=== PATIENT | female | born 1980 | race African-American/Black ===

== ENCOUNTER 2019-04-01 13:19 | Emergency (ER) | payer MEDICAID ==
[~2019-04-01] VITALS: Ht 165.1 cm; Wt 94.3 kg
--- NOTE | 2019-04-01 13:40 | NUR ---
ED Nurse Note:urine sent to labs
[2019-04-01 13:45] VITALS: BP 115/78
[2019-04-01] MEDS ORDERED: Meclizine 25mg tab ORAL ONE (13:45)
--- NOTE | 2019-04-01 13:45 | Emergency Room Report ---
History of Present Illness General Chief Complaint: Female Urogenital Problems Source: Patient Present Illness HPI Patient presents with complaints of significant dizziness consistent with her vertigo patient reports that she gets vertigo frequently last flareup was about 6 months ago this morning upon awaking She again had similar dizziness Patient also this morning had sensation of burning with urination Urinary more frequently Denies any chest pain or shortness of breath denies any vomiting denies any focal weakness Allergies: Coded Allergies: No Known Allergies (Unverified , 04/01/19) Patient History Past Medical History: see triage record Pertinent Family History: none Last Menstrual Period: 02/18/19 Reviewed Nursing Documentation: PMH: Agreed; PSxH: Agreed Nursing Documentation-PMH Past Medical History: No Stated History Review of Systems All Other Systems: negative except mentioned in HPI Physical Exam Vital Signs Date Time Temp Pulse Resp B/P (MAP) Pulse Ox O2 Delivery O2 Flow Rate FiO2 04/01/19 13:23 98.1 90 17 115/78 (90) 99 Room Air Sp02 EP Interpretation: reviewed, normal General Appearance: well appearing, no apparent distress Head: normocephalic, atraumatic Eyes: bilateral eye PERRL, bilateral eye EOMI ENT: hearing grossly normal, normal pharynx, TMs + canals normal, uvula midline Neck: full range of motion, supple, no meningismus, no bony tend Respiratory: lungs clear, normal breath sounds, no rhonchi, no respiratory distress, no retraction, no accessory muscle use Cardiovascular #1: normal peripheral pulses, regular rate, rhythm, no edema, no gallop, no JVD, no murmur Gastrointestinal: normal bowel sounds, non tender, soft, no mass, no organomegaly, non-distended, no guarding, no hernia, no pulsatile mass, no rebound Genitourinary: no CVA tenderness Musculoskeletal: normal inspection Neurologic: oriented x3, responsive, supervisor telephone answering service III-XII nml as tested, motor strength/ tone normal, sensory intact Psychiatric: mood/affect normal Skin: normal color, no rash, warm/dry, palpation normal Lymphatic: normal inspection, no adenopathy Medical Decision Making Diagnostic Impression: Primary Impression: Dysuria Additional Impression: Dizziness ER Course Multiple differentials in consideration Including but not limited to neurological, neurosurgical, infectious pathology entertained Patient's neurological exam is fairly benign No focal deficits patient's findings are consistent with her previous vertigo I did not feel patient met criteria for acute imaging or further work-up she is hemodynamically stable given the urine complaints exam was performed and shows negative findings patient was discussed regarding her diagnosis and will have close follow-up Labs Test 04/01/19 13:30 Urine Color Pale yellow Urine Appearance Clear Urine pH 8 (4.5-8.0) Urine Specific [place] 1.015 (1.005-1.035) Urine Protein Negative (NEGATIVE) Urine Glucose (UA) Negative (NEGATIVE) Urine Ketones Negative (NEGATIVE) Urine Blood Negative (NEGATIVE) Urine Nitrite Negative (NEGATIVE) Urine Bilirubin Negative (NEGATIVE) Urine Urobilinogen 1 MG/DL (0.0-1.0) Urine Leukocyte Esterase 1+ (NEGATIVE) Urine RBC 0-2 /HPF (0 - 2) Urine WBC 2-4 /HPF (0 - 2) Urine Squamous Epithelial Cells Few /LPF (NONE/OCC) Urine Bacteria Few /HPF (NONE) Urine HCG, Qualitative Negative (NEGATIVE) Last Vital Signs Date Time Temp Pulse Resp B/P (MAP) Pulse Ox O2 Delivery O2 Flow Rate FiO2 04/01/19 13:23 98.1 90 17 115/78 (90) 99 Room Air Status: improved Disposition: HOME, SELF-CARE Condition: Improved Scripts Meclizine Hcl* (MECLIZINE*) 25 Mg Tablet 25 MG ORAL THREE TIMES A DAY for 7 Days, #21 TAB Prov: Eli Stafford DO 04/01/19 Meclizine Hcl* (MECLIZINE*) 25 Mg Tablet 25 MG ORAL THREE TIMES A DAY, #12 TAB Prov: Eli Stafford DO 04/01/19 Additional Instructions: Patient is provided with the discharge instructions notified to follow up with primary doctor in the next 2-3 days otherwise return to the er with any worsening symptoms. Please note that this report is being documented using [employer] technology. This can lead to erroneous entry secondary to incorrect interpretation by the dictating instrument. Eli Stafford DO Apr 01, 2019 13:45
[2019-04-01 13:47] LABS: APPEARANCE,URINE CLEAR; BILIRUBIN, URINE NEGATIVE (NEGATIVE); COLOR,URINE PALE YELLOW; GLUCOSE, URINE (UA) NEGATIVE (NEGATIVE); KETONES,URINE NEGATIVE (NEGATIVE); LEUKOCYTE ESTERASE ,URINE 1+ (NEGATIVE); NITRITE,URINE NEGATIVE (NEGATIVE); PH,URINE 8 (4.5-8.0); PROTEIN,URINE NEGATIVE (NEGATIVE); UROBILINOGEN,URINE 1 MG/DL (0.0-1.0)
--- NOTE | 2019-04-01 13:59 | NUR ---
ED Nurse Note: pt from home walked in c/o dizziness nausea since this morning, also reported possible UTI symptoms ermd eval done urine hcg negative BS 107 pt medicated will monitor.
--- NOTE | 2019-04-01 14:33 | NUR ---
ED Nurse Note: pt provided with a 2nd blanket . Pt state he is feeling a little better. Will continue to monitor.
[2019-04-01] MEDS ORDERED: MECLIZINE HCL25 MG ORAL ×2 (15:19→15:49)
[2019-04-01 15:52] VITALS: BP 118/78
--- NOTE | 2019-04-01 15:54 | NUR ---
ED Nurse Note: Pt cleared by health care Provider for discharge. DC instructions/prescription was given and explained to pt and verbalized understanding of teachings. All medical deviecs such as ID band removed. Pt is AAO x4, ambulatory and left with all personal belongings.
== END 2019-04-01 15:55 | disposition home or self-care (01) ==
LOC: EMR 14:05
DX: R42 Dizziness and giddiness (principal); R30.0 Dysuria
CPT/HCPCS: 81003; 81025; 82962; 99283

== ENCOUNTER 2019-04-03 09:36 | Emergency (ER) | payer MEDICAID ==
[~2019-04-03] VITALS: Ht 162.6 cm; Wt 92.5 kg
[~2019-04-03 09:36] MED LIST: MECLIZINE HCL25 MG ORAL
--- NOTE | 2019-04-03 09:45 | NUR ---
ED Nurse Note: Patient walked into ED due to abdominal pain in the mid upper gastric area since yesterday around 2200. Patient reports she has been taking medication "antivert" for her vertigo. patient denies any medical history. patient reports her last BM was yesterday, bowel sounds present on all 4 quadrants. patient is alert awake x4 ambulatory, breathing unlabored and even, skin is warm to touch.
--- NOTE | 2019-04-03 09:54 | Emergency Room Report ---
History of Present Illness General Chief Complaint: Abdominal Pain Source: Patient Present Illness HPI Patient presents with complaints of epigastric abdominal discomfort She was recently here and I do recall seeing the patient for fairly severe episode of dizziness and vertigo Patient reports that that has improved however now experiencing burning sensation in the epigastric area Denies any chest pain or shortness of breath denies any vomiting or diarrhea denies any lower abdominal pain denies any radiation Allergies: Coded Allergies: No Known Allergies (Unverified , 04/01/19) Patient History Past Medical History: see triage record Pertinent Family History: none Last Menstrual Period: 03/06/19 Reviewed Nursing Documentation: PMH: Agreed; PSxH: Agreed Nursing Documentation-PMH Past Medical History: No Stated History Review of Systems All Other Systems: negative except mentioned in HPI Physical Exam Vital Signs Date Time Temp Pulse Resp B/P (MAP) Pulse Ox O2 Delivery O2 Flow Rate FiO2 04/03/19 09:40 98.2 89 18 130/66 (87) 98 Room Air Sp02 EP Interpretation: reviewed, normal General Appearance: well appearing, no apparent distress Head: normocephalic, atraumatic Eyes: bilateral eye PERRL, bilateral eye EOMI ENT: hearing grossly normal, normal pharynx, TMs + canals normal, uvula midline Neck: full range of motion, supple, no meningismus, no bony tend Respiratory: lungs clear, normal breath sounds, no rhonchi, no respiratory distress, no retraction, no accessory muscle use Cardiovascular #1: normal peripheral pulses, regular rate, rhythm, no edema, no gallop, no JVD, no murmur Gastrointestinal: normal bowel sounds, non tender - However subjectively points to epigastric area, soft, no mass, no organomegaly, non-distended, no guarding, no hernia, no pulsatile mass, no rebound Genitourinary: no CVA tenderness Musculoskeletal: normal inspection Neurologic: oriented x3, responsive, conveyor tender III-XII nml as tested, motor strength/ tone normal, sensory intact Psychiatric: mood/affect normal Lymphatic: normal inspection, no adenopathy Medical Decision Making Diagnostic Impression: Primary Impression: Abdominal pain ER Course With the patient's history and examination, multiple differentials considered, including but not limited to , ectopic , ovarian torsion, gastritis, cholecystitis, pancreatitis, appendicitis Patient's discomfort appears to be mainly epigastric possible gastric pathology as well Blood work is at baseline levels patient did better with GI cocktail and at this time will have initial conservative outpatient trial Labs Test 04/03/19 09:55 White Blood Count 7.0 K/UL (4.8-10.8) Red Blood Count 4.42 M/UL (4.20-5.40) Hemoglobin 12.6 G/DL (12.0-16.0) Hematocrit 39.6 % (37.0-47.0) Mean Corpuscular Volume 90 FL (80-99) Mean Corpuscular Hemoglobin 28.5 PG (27.0-31.0) Mean Corpuscular Hemoglobin Concent 31.8 G/DL (32.0-36.0) Red Cell Distribution Width 12.9 % (11.6-14.8) Platelet Count 269 K/UL (150-450) Mean Platelet Volume 5.8 FL (6.5-10.1) Neutrophils (%) (Auto) 60.5 % (45.0-75.0) Lymphocytes (%) (Auto) 29.2 % (20.0-45.0) Monocytes (%) (Auto) 8.7 % (1.0-10.0) Eosinophils (%) (Auto) 0.9 % (0.0-3.0) Basophils (%) (Auto) 0.7 % (0.0-2.0) Sodium Level 137 MMOL/L (136-145) Potassium Level 4.1 MMOL/L (3.5-5.1) Chloride Level 105 MMOL/L (98-107) Carbon Dioxide Level 26 MMOL/L (21-32) Anion Gap 6 mmol/L (5-15) Blood Urea Nitrogen 10 mg/dL (7-18) Creatinine 0.8 MG/DL (0.55-1.30) Estimat Glomerular Filtration Rate > 60 mL/min (>60) Glucose Level 116 MG/DL (74-106) Calcium Level 8.4 MG/DL (8.5-10.1) Total Bilirubin 0.3 MG/DL (0.2-1.0) Aspartate Amino Transf (AST/SGOT) 15 U/L (15-37) Alanine Aminotransferase (ALT/SGPT) 39 U/L (12-78) Alkaline Phosphatase 84 U/L (46-116) Total Protein 6.6 G/DL (6.4-8.2) Albumin 3.7 G/DL (3.4-5.0) Globulin 2.9 g/dL Albumin/Globulin Ratio 1.3 (1.0-2.7) Lipase 123 U/L (73-393) Last Vital Signs Date Time Temp Pulse Resp B/P (MAP) Pulse Ox O2 Delivery O2 Flow Rate FiO2 04/03/19 09:40 98.2 89 18 130/66 (87) 98 Room Air Status: improved Disposition: HOME, SELF-CARE Condition: Improved Scripts Famotidine (PEPCID AC) 20 Mg Tablet 20 MG PO DAILY, #10 TAB Prov: Eli Stafford DO 04/03/19 Referrals: [facility],REFERRING (PCP) Additional Instructions: Patient is provided with the discharge instructions notified to follow up with primary doctor in the next 2-3 days otherwise return to the er with any worsening symptoms. Please note that this report is being documented using [employer] technology. This can lead to erroneous entry secondary to incorrect interpretation by the dictating instrument. Eli Stafford DO Apr 03, 2019 09:54
[2019-04-03] MEDS ORDERED: Dicyclomine HCl 10mg/5ml oral soln ORAL ONE (10:00)
[2019-04-03] MEDS ORDERED: Mylanta II UD 30ml ORAL ONE (10:00)
[2019-04-03 10:10] VITALS: BP 128/62
--- NOTE | 2019-04-03 10:10 | NUR ---
ED Nurse Note: blood sent to lab
[2019-04-03 10:14] LABS: BASOPHILS % (AUTO) 0.7 % (0.0-2.0); EOSINOPHILS % (AUTO) 0.9 % (0.0-3.0); HEMATOCRIT 39.6 % (37.0-47.0); HEMOGLOBIN 12.6 G/DL (12.0-16.0); LYMPHOCYTES % (AUTO) 29.2 % (20.0-45.0); MEAN CORPUSCULAR VOLUME 90 FL (80-99); MONOCYTES % (AUTO) 8.7 % (1.0-10.0); NEUTROPHILS % (AUTO) 60.5 % (45.0-75.0); PLATELET COUNT 269 K/UL (150-450); RED BLOOD COUNT 4.42 M/UL (4.20-5.40); RED CELL DISTRIBUTION WIDTH 12.9 % (11.6-14.8)
[2019-04-03 10:27] LABS: ANION GAP 6 mmol/L (5-15); BLOOD UREA NITROGEN 10 mg/dL (7-18); CALCIUM 8.4 MG/DL (8.5-10.1); CARBON DIOXIDE 26 MMOL/L (21-32); CHLORIDE 105 MMOL/L (98-107); CREATININE 0.8 MG/DL (0.55-1.30); POTASSIUM 4.1 MMOL/L (3.5-5.1); SODIUM 137 MMOL/L (136-145)
[2019-04-03 10:31] LABS: ALANINE AMINOTRANSFERASE 39 U/L (12-78); ALBUMIN 3.7 G/DL (3.4-5.0); ALBUMIN/GLOBULIN RATIO 1.3 (1.0-2.7); ALKALINE PHOSPHATASE 84 U/L (46-116); ASPARTATE AMINO TRANSFERASE 15 U/L (15-37); BILIRUBIN,TOTAL 0.3 MG/DL (0.2-1.0)
[2019-04-03] MEDS ORDERED: PEPCID AC20 M2 PO (11:11)
[2019-04-03 11:17] VITALS: BP 128/62
--- NOTE | 2019-04-03 11:17 | NUR ---
ER DISCHARGE NOTE: Patient is cleared to be discharged per TOYIN Stafford, pt is aox4, on room air, with stable vital signs. pt was given dc and prescription instructions, pt was able to verbalize understanding, pt id band and iv site removed without complications. pt is able to ambulate with steady gait. pt took all belongings.
== END 2019-04-03 11:17 | disposition home or self-care (01) ==
LOC: EMR 09:51
DX: R10.13 Epigastric pain (principal); R42 Dizziness and giddiness
CPT/HCPCS: 36415; 80053; 83690; 85025; 99284

== ENCOUNTER 2019-07-14 16:19 | Emergency (ER) | payer MEDICAID ==
[~2019-07-14] VITALS: Ht 160 cm; Wt 96.2 kg
[~2019-07-14 16:19] MED LIST changes: +PEPCID AC20 M2 PO
[2019-07-14 16:30] VITALS: BP 125/75
[2019-07-14] MEDS ORDERED: NKM (16:33)
[2019-07-14] MEDS ORDERED: IBUPROFEN600 MG ORAL (17:01)
--- NOTE | 2019-07-14 17:01 | Emergency Room Report ---
History of Present Illness General Chief Complaint: Pain Source: Patient Present Illness HPI 39 YO Female presents to the ED c/o 8 out of 10 in severity pain localized to the left heel and plantar aspect of the left foot x3 weeks been progressive patient reports standing and walking frequently at work. Patient reports pain upon palpation yet she also states that it feels better for several seconds. Pt. states she has been primarily walking on the lateral aspect of her left foot or on the ball of the foot. Patient denies trauma or fall. No erythema, bruising, open wounds or bleeding. Pt. has not tried any OTC medications. No suspicion of FB. Pt. has not experienced sx's like this in the past. Denies significant PMHx. Allergies: Coded Allergies: No Known Allergies (Unverified , 04/01/19) Patient History Past Medical History: see triage record Past Surgical History: none Pertinent Family History: none Last Menstrual Period: 06/17/19 Now: No Reviewed Nursing Documentation: PMH: Agreed; PSxH: Agreed Nursing Documentation-PMH Past Medical History: No Stated History Review of Systems All Other Systems: negative except mentioned in HPI Physical Exam Vital Signs Date Time Temp Pulse Resp B/P (MAP) Pulse Ox O2 Delivery O2 Flow Rate FiO2 07/14/19 16:25 98.2 88 17 123/73 (90) 99 Room Air Sp02 EP Interpretation: reviewed, normal General Appearance: well appearing, no apparent distress, alert, GCS 15, non- toxic Head: normocephalic, atraumatic Eyes: bilateral eye normal inspection, bilateral eye PERRL ENT: hearing grossly normal, normal voice Neck: full range of motion Respiratory: lungs clear, normal breath sounds, speaking full sentences Cardiovascular #1: regular rate, rhythm, normal capillary refill Cardiovascular #2: 2+ dorsalis pedis (R), 2+ dorsalis pedis (L) Musculoskeletal: back normal, gait/station normal, normal range of motion, non- tender, tender - TTP to the midline ST of the left foot some radiation up the heel, no localized bony ttp, no bruises or obvious deformity. Pt able to bear weight and ambulate without assistance. Neurologic: alert, oriented x3, responsive, motor strength/tone normal, sensory intact, speech normal, grossly normal Psychiatric: judgement/insight normal Skin: no rash, normal color, other - no open wounds, no warmth/erythema, no visualized old lesions, corns, callous, or plantar warts. Lymphatic: no adenopathy Medical Decision Making PA Attestation Dr. Kurtz Is my supervising Physician whom patient management has been discussed with. Diagnostic Impression: Primary Impression: Plantar fasciitis of left foot Additional Impression: Foot pain, left ER Course 39 YO Female presents to the ED c/o 8 out of 10 in severity pain localized to the left heel and plantar aspect of the left foot x3 weeks been progressive patient reports standing and walking frequently at work. Patient reports pain upon palpation yet she also states that it feels better for several seconds. Pt. states she has been primarily walking on the lateral aspect of her left foot or on the ball of the foot. Patient denies trauma or fall. No erythema, bruising, open wounds or bleeding. Pt. has not tried any OTC medications. No suspicion of FB. Pt. has not experienced sx's like this in the past. Denies significant PMHx. Ddx considered but are not limited to Fracture, dislocation, contusion, Sprain/ Strain/Spasm, plantar fasciitis, infection, ST FB just to name a few. Vital signs: are WNL, pt. is afebrile H&PE are most consistent with ST injury, most likely Plantar fasciitis. No evidence to suggest infection or acute fracture. ORDERS: - X-ray : Not required at this time no localized bony tenderness ED INTERVENTIONS: -IBU 600mg PO --Patient is provided with crutches and instructed on their use -I do not identify an emergent condition at this time. With current presentation , pt. is stable for close outpatient follow up and conservative treatment. D/ w pt. to return promptly to ED with worsening or new symptoms.- Pt. verbalizes' understanding and agreement with proposed treatment plan. DISCHARGE: At this time pt. is stable for d/c to home. Will provide printed patient care instructions, and any necessary prescriptions. Care plan and follow up instructions have been discussed with the patient prior to discharge. Last Vital Signs Date Time Temp Pulse Resp B/P (MAP) Pulse Ox O2 Delivery O2 Flow Rate FiO2 07/14/19 16:25 98.2 88 17 123/73 (90) 99 Room Air Disposition: HOME, SELF-CARE Condition: Stable Scripts Ibuprofen* (MOTRIN*) 600 Mg Tablet 600 MG ORAL THREE TIMES A DAY, #30 TAB 0 Refills Prov: Gege Szymanski 07/14/19 Departure Forms: Return to Work Return to Work Date: Jul 18, 2019 Work Restrictions: No Prolonged Standing Other Restrictions: limited walking, light duty. May return Sooner if Symptoms have resolved. Return to Full Activity: Jul 23, 2019 Patient Instructions: Plantar Fasciitis Additional Instructions: ~ ~ An emergent medical condition has not been identified based on this patients presentation, exam and any necessary testing/imaging. The patient is determined to be stable for outpatient follow-up and management of symptoms by a primary care provider. Take medications as directed. Follow up with a Primary Care Provider in 3-5 days, even if your symptoms have resolved. Return sooner to ED if new symptoms occur, or current symptoms become worse. - Please note that this Emergency Department Report was dictated using [employer] supervisor technology software, occasionally this can lead to erroneous entry secondary to interpretation by the dictation equipment. Gege Szymanski Jul 14, 2019 17:01
[2019-07-14 17:20] VITALS: BP 125/75
== END 2019-07-14 17:20 | disposition home or self-care (01) ==
LOC: EMR 16:52
DX: M72.2 Plantar fascial fibromatosis (principal)
CPT/HCPCS: 99282

== ENCOUNTER 2019-07-19 22:10 | Emergency (ER) | payer MEDICAID ==
[~2019-07-19] VITALS: Ht 160 cm; Wt 96.2 kg
[~2019-07-19 22:10] MED LIST changes: +IBUPROFEN600 MG ORAL; +NKM
--- NOTE | 2019-07-19 22:20 | NUR ---
ED Nurse Note: Patient complaning of pain to the left foot - states she been diagnosed with plantar fascitis but doesnt feel that she is improving.
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
--- NOTE | 2019-07-19 22:45 | NUR ---
ED Nurse Note: Radiographs obtained.
--- NOTE | 2019-07-19 22:50 | NUR ---
ED Nurse Note: Patient provided with crutches with advice per EMT
--- NOTE | 2019-07-19 22:51 | Emergency Room Report ---
History of Present Illness General Chief Complaint: Lower Extremity Injury Source: Patient Present Illness HPI 39-year-old female with no significant past medical history. She presents with chief complaint of left foot pain. Onset for over a week. Pain is to the bottom of the foot. She was seen here and diagnosed with plantar fasciitis. She said is getting worse. Worse with movement and walking. Pain is sharp in nature. [place] like tearing to the arch of the foot. No trauma. No fever chills. Pain is 8 out of 10. Patient has not take anything for it. Allergies: Coded Allergies: No Known Allergies (Unverified , 04/01/19) Patient History Past Medical History: see triage record, old chart reviewed Past Surgical History: none Pertinent Family History: none Social History: Denies: smoking Last Menstrual Period: 07/17/19 Now: No : 5 Para: 4 Immunizations: other Reviewed Nursing Documentation: PMH: Agreed; PSxH: Agreed Nursing Documentation-PMH Past Medical History: No Stated History Review of Systems Eye: Denies: eye pain, blurred vision ENT: Denies: ear pain, nose congestion, throat swelling Respiratory: Denies: cough, shortness of breath Cardiovascular: Denies: chest pain, palpitations Gastrointestinal: Denies: abdominal pain, diarrhea, nausea, vomiting Musculoskeletal: Reports: joint pain; Denies: back pain Skin: Denies: rash Neurological: Denies: headache, numbness Endocrine: Denies: increased thirst, increased urine Hematologic/Lymphatic: Denies: easy bruising All Other Systems: negative except mentioned in HPI Physical Exam Vital Signs Date Time Temp Pulse Resp B/P (MAP) Pulse Ox O2 Delivery O2 Flow Rate FiO2 07/19/19 22:20 98.2 93 17 118/61 (80) 97 Room Air Vitals normal Sp02 EP Interpretation: reviewed, normal General Appearance: well appearing, no apparent distress, alert Head: normocephalic, atraumatic Eyes: bilateral eye PERRL, bilateral eye EOMI ENT: hearing grossly normal, normal pharynx Neck: full range of motion, supple, no meningismus Respiratory: chest non-tender, lungs clear, normal breath sounds Cardiovascular #1: regular rate, rhythm, no murmur Gastrointestinal: normal bowel sounds, non tender, no mass, no organomegaly, no bruit, non-distended Musculoskeletal: back normal, normal range of motion, other - Left foot: She has tenderness along the plantar fascia especially next insertion to the heel. Psychiatric: mood/affect normal Procedures Splinting Splinting : Consent: Verbal Location: Foot left Pre-Made Type: orthopedic shoes Pre-Proc Neuro Vasc Exam: normal Post-Proc Neuro Vasc Exam: normal Patient Tolerated: Well Complications: None Medical Decision Making Diagnostic Impression: Primary Impression: Plantar fasciitis, left ER Course Patient presents with plantar fasciitis. No fracture dislocation. No gout. Will discharge home. Other X-Ray Diagnostic Results Other X-Ray Diagnostic Results : X-Ray ordered: Left foot # of Views/Limited Vs Complete: 3 View Indication: Pain EP Interpretation: Yes Interpretation: no dislocation, no soft tissue swelling, no fractures Impression: No acute disease Electronically Signed by: Tylor Garcia Last Vital Signs Date Time Temp Pulse Resp B/P (MAP) Pulse Ox O2 Delivery O2 Flow Rate FiO2 07/19/19 22:20 98.2 93 17 118/61 (80) 97 Room Air Status: improved Disposition: HOME, SELF-CARE Condition: Stable Scripts Prednisone* (PREDNISONE*) 20 Mg Tablet 40 MG ORAL DAILY, #10 TAB Prov: Kb Patton MD 07/19/19 Ibuprofen* (MOTRIN*) 600 Mg Tablet 600 MG ORAL THREE TIMES A DAY, #30 TAB 0 Refills Prov: Kb Patton MD 07/19/19 Referrals: [facility],REFERRING (PCP) Additional Instructions: Elevate foot. Follow-up with your doctor in 7 days. You may need a referral to see rib sawyer. Return if worse. Kb Patton MD Jul 19, 2019 22:51
[2019-07-19] MEDS ORDERED: IBUPROFEN600 MG ORAL (22:55)
[2019-07-19] MEDS ORDERED: PREDNISONE20 MG ORAL (22:55)
--- NOTE | 2019-07-19 23:02 | NUR ---
ER DISCHARGE NOTE: Patient is cleared to be discharged per ERMD, pt is aox4, on room air, with stable vital signs. pt was given dc and prescription instructions, pt was able to verbalize understanding, pt id band removed without complications. pt is able to ambulate with steady gait utilising crutches. pt took all belongings.
[2019-07-19 23:05] VITALS: BP 118/61
--- NOTE | 2019-07-20 10:52 | Diagnostic Imaging Report ---
Indication: Left foot pain Technique: 3 views left foot Comparison: none Findings: No acute fractures. No dislocations. The joint spaces are preserved there is a ring around the second toe which could obscure pathology. There is a small bone island within the calcaneus Impression: No acute process
== END 2019-07-19 23:02 | disposition home or self-care (01) ==
LOC: EMR 22:33
DX: M72.2 Plantar fascial fibromatosis (principal)
CPT/HCPCS: 73630; Z7502; 99283

== ENCOUNTER 2019-08-18 09:16 | Emergency (ER) | payer SELFPAY ==
[~2019-08-18] VITALS: Ht 160 cm; Wt 92.5 kg
[~2019-08-18 09:16] MED LIST changes: +PREDNISONE20 MG ORAL
[2019-08-18 09:30] VITALS: BP 116/66
--- NOTE | 2019-08-18 09:30 | NUR ---
ED Nurse Note: Patient walked in due to left foot pain x1 week ago. Pt was seen here twice for a month due to same symptom. As per pt, it is a work related injury. Skin is intact. No SOB. Afebrile. VSS.
--- NOTE | 2019-08-18 10:15 | NUR ---
ED Nurse Note: ERMD at bedside.
[2019-08-18] MEDS ORDERED: IBUPROFEN600 MG ORAL (10:20)
[2019-08-18] MEDS ORDERED: ACETAMINOPHEN325 M1 ORAL (10:20)
--- NOTE | 2019-08-18 10:22 | Emergency Room Report ---
History of Present Illness General Chief Complaint: Pain Source: Patient Present Illness HPI Disclaimer: Please note that this report is being documented using [employer] technology. This can lead to erroneous entry secondary to incorrect interpretation by the dictating instrument. HPI: 39-year-old female with a history of plantar fasciitis presents for evaluation of left foot pain. Symptoms have been present for several months. She has had multiple emergency department visits for pain in the left foot. Given a orthopedic shoe and NSAIDs in the past. She states that she was seen at her PMDs office yesterday who cleared her to return to work but she is here because she cannot work or stand on her feet. No new injury. Denies swelling, redness, throbbing sensation. Worse with activity. Minor relieved by rest. Pain is constant over the heel and does not radiate. PMH: Plantar fasciitis PSH: Denies Allergies: Denies Social Hx: Denies drug or alcohol abuse Allergies: Coded Allergies: No Known Allergies (Unverified , 04/01/19) Patient History Last Menstrual Period: 07/2019 Now: No Nursing Documentation-PMH Past Medical History: No Stated History Review of Systems All Other Systems: negative except mentioned in HPI Physical Exam Vital Signs Date Time Temp Pulse Resp B/P (MAP) Pulse Ox O2 Delivery O2 Flow Rate FiO2 08/18/19 09:25 98.2 91 20 116/66 (83) 98 Room Air General: Awake and alert, no acute distress HEENT: NC/AT. EOMI. Resp: Normal work of breathing Skin: Intact. No abrasions, laceration or rash over the exposed skin MSK: There is tenderness over the calcaneus and midfoot over the plantar surface of the left foot without deformity in the ankle, toes. No evidence of gout. Full range of motion at the ankle. No tenderness over the medial or lateral malleolus. No tenderness over the midfoot bones. Neuro: Awake and alert. Mentating appropriately Medical Decision Making Diagnostic Impression: Primary Impression: Foot pain ER Course 39-year-old female presents for evaluation of chronic left heel pain. Symptoms again are consistent with plantar fasciitis. She has been intermittently compliant with the orthopedic boot provided but is no longer using NSAIDs as she states she ran out. She would like to return to work on a limited basis and requesting a note for that. We will provide this note and refill her NSAIDs. Do not see need for emergent imaging at this time as there is no new injury. She can follow-up with her PMD as an outpatient. Last Vital Signs Date Time Temp Pulse Resp B/P (MAP) Pulse Ox O2 Delivery O2 Flow Rate FiO2 08/18/19 09:30 98.2 91 20 116/66 98 Room Air Disposition: HOME, SELF-CARE Condition: Stable Scripts Acetaminophen* (ACETAMINOPHEN 325MG TABLET*) 325 Mg Tablet 650 MG ORAL Q4H PRN for For Pain for 5 Days, #30 TAB Prov: Corey Galo MD 08/18/19 Ibuprofen* (MOTRIN*) 600 Mg Tablet 600 MG ORAL Q8H PRN for For Pain, #30 TAB 0 Refills Prov: Corey Galo MD 08/18/19 Referrals: Barbara [facility] Open 24 hour /7 days a week by Appointment Only [address] [facility] [address] [address] Patient Instructions: Plantar Fasciitis Additional Instructions: We have refilled your medications for Tylenol, Motrin to use for your foot pain. Continue wearing the orthopedic boot provided at your last emergency department visit. Follow-up with your doctor to discuss continued foot pain. Return to the emergency department new or worsening symptoms. Corey Galo MD Aug 18, 2019 10:22
[2019-08-18 10:34] VITALS: BP 116/66
--- NOTE | 2019-08-18 10:34 | NUR ---
ED Nurse Note: Pt cleared by ERMD for discharge. DC instructions was given and explained to pt and verbalized understanding of teachings. Prescription was sent electronically to the pharmacy of choice. All medical deviecs such as ID band removed. Pt is AAO x4, ambulatory and left with all personal belongings.
== END 2019-08-18 10:34 | disposition home or self-care (01) ==
LOC: EMR 09:45
DX: M25.572 Pain in left ankle and joints of left foot (principal); G89.29 Other chronic pain
CPT/HCPCS: 99282

== ENCOUNTER 2019-08-23 16:47 | Emergency (ER) | payer MEDICAID ==
[~2019-08-23] VITALS: Ht 160 cm; Wt 92.5 kg
[~2019-08-23 16:47] MED LIST changes: +ACETAMINOPHEN325 M1 ORAL
[2019-08-23 17:01] VITALS: BP 114/72
--- NOTE | 2019-08-23 17:03 | NUR ---
ED Nurse Note: Patient walked in to ER from home due to Lt wrist pain 05/15. per pt, she fell and landed on Lt wrist last night and pain did not get better. no bruise or visible wound noted but edema on Lt wrist present. Patient alert and oriented x4 and ambulatory. Calm and cooperative. Skin clean and intact. No cardiac or acute distress noted at this time.
--- NOTE | 2019-08-23 17:13 | NUR ---
ED Nurse Note: x-ray at bedside.
[2019-08-23] MEDS ORDERED: HYDROcodone/Acetamin 5/325 tab ORAL ONE (17:15)
--- NOTE | 2019-08-23 17:54 | NUR ---
ED Nurse Note: splint applied at bedside.
--- NOTE | 2019-08-23 17:55 | Emergency Room Report ---
History of Present Illness General Chief Complaint: Upper Extremity Injury Source: Patient Present Illness HPI 39 YO female presents to the ED C/O 05/15 in severity pain, tenderness and swelling to the lateral aspect of the left wrist. Pt. S/p mechanical fall. Pt. states her wrist "bent inward" when she landed. She denies FOOSH. Denies hitting her head or having midline neck or back pain. Pt. reports pain with twisting the wrist and palpation of the lateral aspect of the left wrist. Denies numbness tingling or loss of sensation or gross motor movements of the extremities, incontinence of bowel or bladder. Denies CP, Palpitations, LOC, AMS , dizziness, Changes in Vision, weakness or a sudden severe headache. Allergies: Coded Allergies: No Known Allergies (Unverified , 04/01/19) Patient History Past Medical History: see triage record Past Surgical History: none Pertinent Family History: none Last Menstrual Period: 07/27/19 Now: No Reviewed Nursing Documentation: PMH: Agreed; PSxH: Agreed Nursing Documentation-PMH Past Medical History: No Stated History Review of Systems All Other Systems: negative except mentioned in HPI Physical Exam Vital Signs Date Time Temp Pulse Resp B/P (MAP) Pulse Ox O2 Delivery O2 Flow Rate FiO2 08/23/19 16:52 98.4 101 15 114/72 (86) 96 Room Air Sp02 EP Interpretation: reviewed, normal General Appearance: no apparent distress, alert, GCS 15, non-toxic Head: normocephalic, atraumatic Eyes: bilateral eye normal inspection, bilateral eye PERRL ENT: hearing grossly normal, normal voice Neck: full range of motion Respiratory: chest non-tender, lungs clear, normal breath sounds, speaking full sentences Cardiovascular #1: regular rate, rhythm, normal capillary refill Cardiovascular #2: 2+ radial (R), 2+ radial (L) Musculoskeletal: back normal, gait/station normal, normal range of motion, tender - lateral aspect of the left wrist. no bruises, no obvious deformity. FROM with pain. No snuff box tenderness. Neurologic: alert, oriented x3, responsive, motor strength/tone normal, sensory intact, speech normal, distal neuro normal, grossly normal Psychiatric: judgement/insight normal Skin: normal color, normal inspection Medical Decision Making PA Attestation Dr. Stafford is my supervising Physician whom patient management has been discussed with. Diagnostic Impression: Primary Impression: Left wrist sprain Qualified Codes: S63.502A - Unspecified sprain of left wrist, initial encounter ER Course 39 YO female presents to the ED C/O 05/15 in severity pain, tenderness and swelling to the lateral aspect of the left wrist. Pt. S/p mechanical fall. Pt. states her wrist "bent inward" when she landed. She denies FOOSH. Denies hitting her head or having midline neck or back pain. Pt. reports pain with twisting the wrist and palpation of the lateral aspect of the left wrist. Denies numbness tingling or loss of sensation or gross motor movements of the extremities, incontinence of bowel or bladder. Denies CP, Palpitations, LOC, AMS , dizziness, Changes in Vision, weakness or a sudden severe headache. Denies numbness tingling or loss of sensation or gross motor movements of the extremities, incontinence of bowel or bladder. Denies CP, Palpitations, LOC, AMS , dizziness, Changes in Vision, weakness or a sudden severe headache. Ddx considered but are not limited to Fracture, dislocation, contusion, Sprain/ Strain/Spasm, scaphoid fx just to name a few. Vital signs: are WNL, pt. is afebrile H&PE are most consistent with musculoskeletal injury will perform imaging to r/ o fractures/dislocations. ORDERS: - X-ray Left wrist 3 views - negative for fx, Dislocation, or significant soft tissue injury, per preliminary read in ED, and signed by SARAH Szymanski , my supervising physician has reviewed, and agrees with my interpretation. ED INTERVENTIONS: - Darby PO - Left Colles wrist splint applied by roadway technician. Pt. remains neurovascularly intact. DISCHARGE: At this time pt. is stable for d/c to home. Will provide printed patient care instructions, and any necessary prescriptions. Care plan and follow up instructions have been discussed with the patient prior to discharge. Other X-Ray Diagnostic Results Other X-Ray Diagnostic Results : X-Ray ordered: Left Wrist # of Views/Limited Vs Complete: 3 View Indication: Pain EP Interpretation: Yes SARAH Xray: Interpretation reviewed, by supervising MD, and agrees with findings. Interpretation: no dislocation, no soft tissue swelling, no fractures Impression: No acute disease Electronically Signed by: Gege Szymanski PA-C Last Vital Signs Date Time Temp Pulse Resp B/P (MAP) Pulse Ox O2 Delivery O2 Flow Rate FiO2 08/23/19 17:01 98.4 15 114/72 96 Room Air 08/23/19 16:52 101 Status: improved Disposition: HOME, SELF-CARE Condition: Stable Scripts Naproxen* (NAPROXEN*) 500 Mg Tablet 500 MG ORAL BID, #14 TAB 0 Refills Prov: Gege Szymanski 08/23/19 Departure Forms: Return to Work Return to Work Date: Aug 24, 2019 Work Restrictions: No Heavy Lifting Other Restrictions: wear splint, limited use of left hand. May return Sooner if improved. Return to Full Activity: Aug 31, 2019 Patient Instructions: Wrist Sprain Additional Instructions: Take medications as directed. Follow up with a Primary Care Provider in 3-5 days, even if your symptoms have resolved. Return sooner to ED if new symptoms occur, or current symptoms become worse. - Please note that this Emergency Department Report was dictated using saperatecregistered occupational therapist technology software, occasionally this can lead to erroneous entry secondary to interpretation by the dictation equipment. Gege Szymanski Aug 23, 2019 17:55
[2019-08-23] MEDS ORDERED: NAPROXEN500 M2 ORAL (17:56)
[2019-08-23 18:04] VITALS: BP 116/72
--- NOTE | 2019-08-23 18:05 | NUR ---
ED Nurse Note: Pt cleared by health care Provider for discharge after splint applied on Lt wrist. DC instructions/prescription was given and explained to pt and verbalized understanding of teachings. All medical deviecs such as ID band removed. Pt is AAO x4, ambulatory and left with all personal belongings.
--- NOTE | 2019-08-24 11:48 | Diagnostic Imaging Report ---
Clinical Indication:Left wrist pain Technique: 3 views of the left wrist Comparison: None Findings: No acute fractures. No dislocations. The joint spaces are preserved Impression: Negative
== END 2019-08-23 18:05 | disposition home or self-care (01) ==
LOC: EMR 17:05
DX: S63.502A Unspecified sprain of left wrist, initial encounter (principal); W19.XXXA Unspecified fall, initial encounter; Y92.9 Unspecified place or not applicable
CPT/HCPCS: 29125; 73110; Z7502; 99283

== ENCOUNTER 2019-09-14 20:46 | Emergency (ER) | payer MEDICAID ==
[~2019-09-14] VITALS: Ht 160 cm; Wt 92.5 kg
[~2019-09-14 20:46] MED LIST changes: +NAPROXEN500 M2 ORAL
[2019-09-14 21:02] VITALS: BP 116/73
--- NOTE | 2019-09-14 21:02 | NUR ---
ED Nurse Note: Patient walked in to ER c/o abdominal pain and diarrhea x 1 day. Reports pain as constant and aching. Stated that she feels shaky. Denies any fever or chills. No nausea and vomiting. Afebrile. No SOB. Breathing even and unlabored. VSS.
[2019-09-14] MEDS ORDERED: Morphine Sulfate 2mg/ml Inj(IV/IM USE ONLY) IVP ONE (21:30)
--- NOTE | 2019-09-14 21:40 | NUR ---
ED Nurse Note: IV line established. Blood and urine specimen collected and sent to lab.
[2019-09-14 21:54] LABS: APPEARANCE,URINE CLEAR; BILIRUBIN, URINE NEGATIVE (NEGATIVE); COLOR,URINE PALE YELLOW; GLUCOSE, URINE (UA) NEGATIVE (NEGATIVE); KETONES,URINE NEGATIVE (NEGATIVE); LEUKOCYTE ESTERASE ,URINE NEGATIVE (NEGATIVE); NITRITE,URINE NEGATIVE (NEGATIVE); PH,URINE 6 (4.5-8.0); PROTEIN,URINE NEGATIVE (NEGATIVE); UROBILINOGEN,URINE NORMAL MG/DL (0.0-1.0)
[2019-09-14 21:58] LABS: BASOPHILS % (AUTO) 1.1 % (0.0-2.0); EOSINOPHILS % (AUTO) 1.3 % (0.0-3.0); HEMATOCRIT 38.4 % (37.0-47.0); HEMOGLOBIN 12.9 G/DL (12.0-16.0); LYMPHOCYTES % (AUTO) 38.3 % (20.0-45.0); MEAN CORPUSCULAR VOLUME 84 FL (80-99); MONOCYTES % (AUTO) 9.2 % (1.0-10.0); NEUTROPHILS % (AUTO) 50.1 % (45.0-75.0); PLATELET COUNT 227 K/UL (150-450); RED CELL DISTRIBUTION WIDTH 10.9 % (11.6-14.8); WHITE BLOOD COUNT 7.1 K/UL (4.8-10.8)
[2019-09-14 22:05] LABS: ANION GAP 8 mmol/L (5-15); BLOOD UREA NITROGEN 9 mg/dL (7-18); CALCIUM 8.9 MG/DL (8.5-10.1); CARBON DIOXIDE 27 MMOL/L (21-32); CHLORIDE 106 MMOL/L (98-107); CREATININE 0.8 MG/DL (0.55-1.30); POTASSIUM 3.7 MMOL/L (3.5-5.1); SODIUM 140 MMOL/L (136-145)
[2019-09-14 22:09] LABS: ALANINE AMINOTRANSFERASE 43 U/L (12-78); ALBUMIN 3.4 G/DL (3.4-5.0); ALKALINE PHOSPHATASE 94 U/L (46-116); ASPARTATE AMINO TRANSFERASE 13 U/L (15-37); BILIRUBIN,TOTAL 0.1 MG/DL (0.2-1.0)
[2019-09-14] MEDS ORDERED: RANITIDINE HCL150 MG ORAL (22:36)
[2019-09-14] MEDS ORDERED: ONDANSETRON ODT4 MG BC (22:36)
[2019-09-14 23:00] VITALS: BP 109/68
--- NOTE | 2019-09-14 23:00 | NUR ---
ED Nurse Note: Pt cleared by ERMD for discharge. DC instructions/prescription was given and explained to pt and verbalized understanding of teachings. All medical deviecs such as ID band and IV line removed. Pt is AAO x4, ambulatory and left with all personal belongings.
--- NOTE | 2019-09-15 04:22 | Emergency Room Report ---
History of Present Illness General Chief Complaint: Abdominal Pain Source: Patient Present Illness HPI 39-year-old female presents ED for evaluation. Brought in by EMS complaining of abdominal pain with nausea and vomiting. And diarrhea. Started today. Pain is cramping, 7 out of 10, nonradiating. Denies fevers or chills. Denies sick contacts or recent travel. Denies recent antibiotic use. No other aggravating relieving factors. Denies any other associated symptoms Allergies: Coded Allergies: No Known Allergies (Unverified , 04/01/19) Patient History Past Medical History: none Past Surgical History: none Pertinent Family History: none Social History: Denies: smoking, alcohol use, drug use Last Menstrual Period: 09/05/19 Now: No : 5 Para: 4 Immunizations: UTD Reviewed Nursing Documentation: PMH: Agreed; PSxH: Agreed Nursing Documentation-PMH Past Medical History: No Stated History Review of Systems All Other Systems: negative except mentioned in HPI Physical Exam Vital Signs Date Time Temp Pulse Resp B/P (MAP) Pulse Ox O2 Delivery O2 Flow Rate FiO2 09/14/19 20:55 98.1 91 16 116/73 (87) 96 Room Air Sp02 EP Interpretation: reviewed, normal General Appearance: no apparent distress, alert, GCS 15, non-toxic Head: normocephalic, atraumatic Eyes: bilateral eye normal inspection, bilateral eye PERRL ENT: hearing grossly normal, normal pharynx, no angioedema, normal voice Neck: full range of motion, supple/symm/no masses Respiratory: chest non-tender, lungs clear, normal breath sounds, speaking full sentences Cardiovascular #1: regular rate, rhythm, no edema Cardiovascular #2: 2+ carotid (R), 2+ carotid (L), 2+ radial (R), 2+ radial (L) , 2+ dorsalis pedis (R), 2+ dorsalis pedis (L) Gastrointestinal: normal bowel sounds, soft, non-distended, no guarding, no rebound, tenderness Rectal: deferred Genitourinary: normal inspection, no CVA tenderness Musculoskeletal: back normal, normal range of motion, gait/station normal, non- tender Neurologic: alert, motor strength/tone normal, oriented x3, sensory intact, responsive, speech normal Psychiatric: judgement/insight normal, memory normal, mood/affect normal, no suicidal/homicidal ideation Reflexes: 3+ bicep (R), 3+ bicep (L), 3+ tricep (R), 3+ tricep (L), 3+ knee (R) , 3+ knee (L) Lymphatic: no adenopathy Medical Decision Making Diagnostic Impression: Primary Impression: Gastroenteritis ER Course Hospital Course 39-year-old F presents to ED with cramping abdominal pain with vomiting, diarrhea differential diagnosis: gastritis, SBO, cholecystits, gastroenteritis Clinical course Patient placed on stretcher. On equipment monitor phototypesetting. After initial history and physical I ordered labs, IV fluids, Zofran and pepcid Labs - no leukocytosis, electrolytes ok, LFTs normal, UA unremarkable On reassessment patient states she feels better. Consideration for gastroenteritis. Will discharge to home. Will provide referrals I feel this is a highly complex case requiring extensive working including EKG/ Rhythm strip, Xray/CT/US, Blood/urine lab work, repeat exams while in ED, and administration of strong opiates/narcotics for pain control, admission to hospital or close patient follow up. Diagnosis - gastroenteritis Stable and discharged to home with prescriptions for Zantac, zofran. Followup with PMD. Return to ED if symptoms recur or worsen Labs Test 09/14/19 21:37 White Blood Count 7.1 K/UL (4.8-10.8) Red Blood Count 4.60 M/UL (4.20-5.40) Hemoglobin 12.9 G/DL (12.0-16.0) Hematocrit 38.4 % (37.0-47.0) Mean Corpuscular Volume 84 FL (80-99) Mean Corpuscular Hemoglobin 28.1 PG (27.0-31.0) Mean Corpuscular Hemoglobin Concent 33.6 G/DL (32.0-36.0) Red Cell Distribution Width 10.9 % (11.6-14.8) Platelet Count 227 K/UL (150-450) Mean Platelet Volume 5.6 FL (6.5-10.1) Neutrophils (%) (Auto) 50.1 % (45.0-75.0) Lymphocytes (%) (Auto) 38.3 % (20.0-45.0) Monocytes (%) (Auto) 9.2 % (1.0-10.0) Eosinophils (%) (Auto) 1.3 % (0.0-3.0) Basophils (%) (Auto) 1.1 % (0.0-2.0) Urine Color Pale yellow Urine Appearance Clear Urine pH 6 (4.5-8.0) Urine Specific [place] 1.025 (1.005-1.035) Urine Protein Negative (NEGATIVE) Urine Glucose (UA) Negative (NEGATIVE) Urine Ketones Negative (NEGATIVE) Urine Blood Negative (NEGATIVE) Urine Nitrite Negative (NEGATIVE) Urine Bilirubin Negative (NEGATIVE) Urine Urobilinogen Normal MG/DL (0.0-1.0) Urine Leukocyte Esterase Negative (NEGATIVE) Urine HCG, Qualitative Negative (NEGATIVE) Sodium Level 140 MMOL/L (136-145) Potassium Level 3.7 MMOL/L (3.5-5.1) Chloride Level 106 MMOL/L (98-107) Carbon Dioxide Level 27 MMOL/L (21-32) Anion Gap 8 mmol/L (5-15) Blood Urea Nitrogen 9 mg/dL (7-18) Creatinine 0.8 MG/DL (0.55-1.30) Estimat Glomerular Filtration Rate > 60 mL/min (>60) Glucose Level 129 MG/DL (74-106) Calcium Level 8.9 MG/DL (8.5-10.1) Total Bilirubin 0.1 MG/DL (0.2-1.0) Aspartate Amino Transf (AST/SGOT) 13 U/L (15-37) Alanine Aminotransferase (ALT/SGPT) 43 U/L (12-78) Alkaline Phosphatase 94 U/L (46-116) Total Protein 6.9 G/DL (6.4-8.2) Albumin 3.4 G/DL (3.4-5.0) Globulin 3.5 g/dL Albumin/Globulin Ratio 1.0 (1.0-2.7) Lipase 220 U/L (73-393) Last Vital Signs Date Time Temp Pulse Resp B/P (MAP) Pulse Ox O2 Delivery O2 Flow Rate FiO2 09/14/19 23:00 97.5 88 19 109/68 97 Room Air Status: improved Disposition: HOME, SELF-CARE Condition: Stable Scripts Ondansetron Odt* (ZOFRAN ODT*) 4 Mg Tab.rapdis 4 MG BC EVERY 6 HOURS PRN for Nausea & Vomiting, #10 TAB 0 Refills Prov: Blane Guerrero MD 09/14/19 Ranitidine Hcl* (ZANTAC*) 150 Mg Tablet 150 MG ORAL TWICE A DAY, #30 TAB Prov: Blane Guerrero MD 09/14/19 Referrals: Barbara Jonas [facility] Patient Instructions: Viral Gastroenteritis, Adult, [id number] Blane Guerrero MD Sep 15, 2019 04:22
== END 2019-09-14 23:00 | disposition home or self-care (01) ==
LOC: EMR 21:40
DX: K52.9 Noninfective gastroenteritis and colitis, unspecified (principal)
CPT/HCPCS: 36415; 80053; 81003; 81025; 83690; 85025; 86710; 96361; 96374; 96375; J2270; J2405; J7030; S0028; Z7502; 99284

== ENCOUNTER 2019-09-25 21:51 | Emergency (ER) | payer MEDICAID ==
[~2019-09-25] VITALS: Ht 162.6 cm; Wt 92.5 kg
[~2019-09-25 21:51] MED LIST changes: +ONDANSETRON ODT4 MG BC; +RANITIDINE HCL150 MG ORAL
[2019-09-25] MEDS ORDERED: NKM (21:56)
[2019-09-25 22:12] VITALS: BP 124/74
[2019-09-25] MEDS ORDERED: Acetaminophen 500mg (ES) tab ORAL ONE (22:15)
--- NOTE | 2019-09-25 22:15 | NUR ---
ED Nurse Note: Patient walked into ED c/o pelvic pain for the past 2 days, denies increased urination and discharge. ao4. nad. vss. ambulates with steady gait. changed to gown; attached to monitor.
[2019-09-25 22:18] LABS: APPEARANCE,URINE CLEAR; BILIRUBIN, URINE NEGATIVE (NEGATIVE); GLUCOSE, URINE (UA) NEGATIVE (NEGATIVE); KETONES,URINE NEGATIVE (NEGATIVE); LEUKOCYTE ESTERASE ,URINE NEGATIVE (NEGATIVE); NITRITE,URINE NEGATIVE (NEGATIVE); PH,URINE 6 (4.5-8.0); PROTEIN,URINE NEGATIVE (NEGATIVE); UROBILINOGEN,URINE 4 MG/DL (0.0-1.0)
--- NOTE | 2019-09-25 22:20 | NUR ---
ED Nurse Note: iv access established. blood and urine collected; sent down to lab.
[2019-09-25 22:21] LABS: COLOR,URINE YELLOW
[2019-09-25 22:38] LABS: BASOPHILS % (AUTO) 0.8 % (0.0-2.0); EOSINOPHILS % (AUTO) 0.8 % (0.0-3.0); HEMATOCRIT 39.9 % (37.0-47.0); HEMOGLOBIN 13.1 G/DL (12.0-16.0); LYMPHOCYTES % (AUTO) 34.7 % (20.0-45.0); MEAN CORPUSCULAR VOLUME 85 FL (80-99); MONOCYTES % (AUTO) 9.6 % (1.0-10.0); NEUTROPHILS % (AUTO) 54.1 % (45.0-75.0); PLATELET COUNT 248 K/UL (150-450); RED CELL DISTRIBUTION WIDTH 12.3 % (11.6-14.8); WHITE BLOOD COUNT 8.6 K/UL (4.8-10.8)
--- NOTE | 2019-09-25 22:44 | NUR ---
ED Nurse Note: patient down to us with ustech. ambulates with steady gait.
[2019-09-25 22:55] LABS: ALANINE AMINOTRANSFERASE 41 U/L (12-78); ALBUMIN 3.7 G/DL (3.4-5.0); ALBUMIN/GLOBULIN RATIO 1.1 (1.0-2.7); ALKALINE PHOSPHATASE 86 U/L (46-116); ANION GAP 6 mmol/L (5-15); ASPARTATE AMINO TRANSFERASE 15 U/L (15-37); BILIRUBIN,TOTAL 0.2 MG/DL (0.2-1.0); BLOOD UREA NITROGEN 12 mg/dL (7-18); CARBON DIOXIDE 29 MMOL/L (21-32); CHLORIDE 104 MMOL/L (98-107); CREATININE 0.9 MG/DL (0.55-1.30); POTASSIUM 3.8 MMOL/L (3.5-5.1); SODIUM 139 MMOL/L (136-145)
--- NOTE | 2019-09-25 23:12 | Emergency Room Report ---
History of Present Illness General Chief Complaint: Pelvic Pain Source: Patient Present Illness HPI 39-year-old female presents ED for evaluation. Complaining of pelvic pain x2 days. Sharp, 7 out of 10, radiating to the back. Denies vaginal bleeding or discharge. Denies fevers or chills. Denies nausea or vomiting. No other aggravating relieving factors. Denies any other associated symptoms Allergies: Coded Allergies: No Known Allergies (Unverified , 04/01/19) Patient History Past Medical History: none Past Surgical History: none Pertinent Family History: none Social History: Denies: smoking, alcohol use, drug use Last Menstrual Period: 09/07/19 Now: No Immunizations: UTD Reviewed Nursing Documentation: PMH: Agreed; PSxH: Agreed Nursing Documentation-PMH Past Medical History: No Stated History Review of Systems All Other Systems: negative except mentioned in HPI Physical Exam Vital Signs Date Time Temp Pulse Resp B/P (MAP) Pulse Ox O2 Delivery O2 Flow Rate FiO2 09/25/19 21:52 98.2 86 18 124/74 (91) 98 Room Air Sp02 EP Interpretation: reviewed, normal General Appearance: no apparent distress, alert, GCS 15, non-toxic Head: normocephalic, atraumatic Eyes: bilateral eye normal inspection, bilateral eye PERRL ENT: hearing grossly normal, normal pharynx, no angioedema, normal voice Neck: full range of motion, supple/symm/no masses Respiratory: chest non-tender, lungs clear, normal breath sounds, speaking full sentences Cardiovascular #1: regular rate, rhythm, no edema Cardiovascular #2: 2+ carotid (R), 2+ carotid (L), 2+ radial (R), 2+ radial (L) , 2+ dorsalis pedis (R), 2+ dorsalis pedis (L) Gastrointestinal: normal bowel sounds, soft, non-distended, no guarding, no rebound, tenderness - suprapubic Rectal: deferred Genitourinary: normal inspection, no CVA tenderness Musculoskeletal: back normal, normal range of motion, gait/station normal, other - L foot Neurologic: alert, motor strength/tone normal, oriented x3, sensory intact, responsive, speech normal Psychiatric: judgement/insight normal, memory normal, mood/affect normal, no suicidal/homicidal ideation Reflexes: 3+ bicep (R), 3+ bicep (L), 3+ tricep (R), 3+ tricep (L), 3+ knee (R) , 3+ knee (L) Skin: no rash Lymphatic: no adenopathy Medical Decision Making Diagnostic Impression: Primary Impression: Foot pain Qualified Codes: M79.672 - Pain in left foot Additional Impressions: Ovarian cyst Qualified Codes: N83.201 - Unspecified ovarian cyst, right side Fibroids ER Course Hospital Course 39-year-old female presents to ED complaining of lower abdominal pain Differential diagnoses include: gastrits, gastroenterits, ectopic , ovarian torsion/cyst, UTI Clinical course Patient placed on stretcher in ED. After initial history and physical I ordered labs, IV fluids and pain meds and pelvic ultrasound. Labs-no leukocytosis, electrolytes okay, beta hCG negative, UA negative Pelvic ultrasound- fibroids, R ovarian hemorrhagic cyst, good flow to both ovaries I discussed findings with the patient. Safe for discharge with close outpatient follow-up. I provided copy of ultrasound report. States she will follow-up with her [employer]. Plantar fasciitis pain is improved after medication. Diagnosis - fibroids, ovarian cyst, foot pain Stable and discharged to home with RxMotrin. Followup with PMD/[employer]. Return to ED if symptoms recur or worsen Labs Test 09/25/19 02:20 09/25/19 22:15 Urine Color Yellow Urine Appearance Clear Urine pH 6 (4.5-8.0) Urine Specific [place] 1.020 (1.005-1.035) Urine Protein Negative (NEGATIVE) Urine Glucose (UA) Negative (NEGATIVE) Urine Ketones Negative (NEGATIVE) Urine Blood Negative (NEGATIVE) Urine Nitrite Negative (NEGATIVE) Urine Bilirubin Negative (NEGATIVE) Urine Urobilinogen 4 MG/DL (0.0-1.0) Urine Leukocyte Esterase Negative (NEGATIVE) Urine HCG, Qualitative Negative (NEGATIVE) White Blood Count 8.6 K/UL (4.8-10.8) Red Blood Count 4.70 M/UL (4.20-5.40) Hemoglobin 13.1 G/DL (12.0-16.0) Hematocrit 39.9 % (37.0-47.0) Mean Corpuscular Volume 85 FL (80-99) Mean Corpuscular Hemoglobin 27.9 PG (27.0-31.0) Mean Corpuscular Hemoglobin Concent 32.9 G/DL (32.0-36.0) Red Cell Distribution Width 12.3 % (11.6-14.8) Platelet Count 248 K/UL (150-450) Mean Platelet Volume 5.5 FL (6.5-10.1) Neutrophils (%) (Auto) 54.1 % (45.0-75.0) Lymphocytes (%) (Auto) 34.7 % (20.0-45.0) Monocytes (%) (Auto) 9.6 % (1.0-10.0) Eosinophils (%) (Auto) 0.8 % (0.0-3.0) Basophils (%) (Auto) 0.8 % (0.0-2.0) Sodium Level 139 MMOL/L (136-145) Potassium Level 3.8 MMOL/L (3.5-5.1) Chloride Level 104 MMOL/L (98-107) Carbon Dioxide Level 29 MMOL/L (21-32) Anion Gap 6 mmol/L (5-15) Blood Urea Nitrogen 12 mg/dL (7-18) Creatinine 0.9 MG/DL (0.55-1.30) Estimat Glomerular Filtration Rate > 60 mL/min (>60) Glucose Level 94 MG/DL (74-106) Calcium Level 9.0 MG/DL (8.5-10.1) Total Bilirubin 0.2 MG/DL (0.2-1.0) Aspartate Amino Transf (AST/SGOT) 15 U/L (15-37) Alanine Aminotransferase (ALT/SGPT) 41 U/L (12-78) Alkaline Phosphatase 86 U/L (46-116) Total Protein 7.2 G/DL (6.4-8.2) Albumin 3.7 G/DL (3.4-5.0) Globulin 3.5 g/dL Albumin/Globulin Ratio 1.1 (1.0-2.7) Lipase 161 U/L (73-393) CT/MRI/US Diagnostic Results CT/MRI/US Diagnostic Results : Imaging Test Ordered: Pelvic US Impression FINDINGS: Uterus/cervix: 9.4 cm. Normal endometrial stripe thickness 6 mm. 2 intramural fibroids measuring 2.5 and 1.7 cm.. Right ovary: 4.4 cm. 4 cm underlying septated cyst. No mass. Normal blood flow. Left ovary: 4.4 cm. No mass. Normal blood flow. Free fluid: No free fluid. Last Vital Signs Date Time Temp Pulse Resp B/P (MAP) Pulse Ox O2 Delivery O2 Flow Rate FiO2 09/25/19 22:12 98.2 89 18 124/74 98 Room Air Status: improved Disposition: HOME, SELF-CARE Condition: Stable Scripts Ibuprofen* (MOTRIN*) 600 Mg Tablet 600 MG ORAL Q8H PRN for For Pain, #30 TAB 0 Refills Prov: Blane Guerrero MD 09/25/19 Referrals: [facility],REFERRING (PCP) Blane Guerrero MD Sep 25, 2019 23:12
--- NOTE | 2019-09-25 23:30 | NUR ---
ED Nurse Note: pt back from us.
--- NOTE | 2019-09-25 23:30 | Diagnostic Imaging Report ---
EXAM: US Pelvis Transabdominal, Complete CLINICAL HISTORY: ABD PAIN TECHNIQUE: Real-time complete transabdominal pelvic ultrasound with image documentation. COMPARISON: No relevant prior studies available. FINDINGS: Uterus/cervix: 9.4 cm. Normal endometrial stripe thickness 6 mm. 2 intramural fibroids measuring 2.5 and 1.7 cm.. Right ovary: 4.4 cm. 4 cm underlying septated cyst. No mass. Normal blood flow. Left ovary: 4.4 cm. No mass. Normal blood flow. Free fluid: No free fluid. IMPRESSION: 1. Fibroid uterus. 2. Hemorrhagic cyst in the right ovary.
[2019-09-25] MEDS ORDERED: IBUPROFEN600 MG ORAL (23:56)
[2019-09-26] VITALS: BP 124/74
--- NOTE | 2019-09-26 | NUR ---
ER DISCHARGE NOTE: Patient is cleared to be discharged per ERMD, pt is aox4, on room air, with stable vital signs. pt was given dc and prescription instructions, pt was able to verbalize understanding, pt id band and iv site removed without complications. pt is able to ambulate with steady gait. pt took all belongings.
== END 2019-09-26 | disposition home or self-care (01) ==
LOC: EMR 22:10
DX: N83.201 Unspecified ovarian cyst, right side (principal); D25.1 Intramural leiomyoma of uterus; M79.672 Pain in left foot
CPT/HCPCS: 36415; 76830; 76856; 80053; 81003; 81025; 83690; 85025; Z7502; 99284

== ENCOUNTER 2019-11-23 19:08 | Emergency (ER) | payer MEDICAID ==
[~2019-11-23] VITALS: Ht 160 cm; Wt 98.9 kg
[2019-11-23 19:30] VITALS: BP 122/75
--- NOTE | 2019-11-23 19:30 | NUR ---
ED Nurse Note: Patient walked in from home d/t left side abdominal sharp pain 8/10, history of fibroids and ovarian cysts. Patient also stated light vaginal bleeding. Patient aao x 4 and ambulatory. Patient stable during assessment.
[2019-11-23] MEDS ORDERED: Ketorolac 30mg Inj IV ONE (19:45)
--- NOTE | 2019-11-23 19:45 | NUR ---
ED Nurse Note: Blood drawn, sent to lab. Patient taken to US in stable condition.
[2019-11-23 20:05] LABS: BASOPHILS % (AUTO) 1.3 % (0.0-2.0); HEMATOCRIT 40.5 % (37.0-47.0); LYMPHOCYTES % (AUTO) 30.9 % (20.0-45.0); MEAN CORPUSCULAR VOLUME 88 FL (80-99); MONOCYTES % (AUTO) 8.4 % (1.0-10.0); NEUTROPHILS % (AUTO) 58.4 % (45.0-75.0); PLATELET COUNT 273 K/UL (150-450); RED BLOOD COUNT 4.61 M/UL (4.20-5.40); WHITE BLOOD COUNT 8.9 K/UL (4.8-10.8)
[2019-11-23 20:09] LABS: APPEARANCE,URINE SLIGHTLY CLOUDY; BILIRUBIN, URINE NEGATIVE (NEGATIVE); GLUCOSE, URINE (UA) NEGATIVE (NEGATIVE); KETONES,URINE NEGATIVE (NEGATIVE); LEUKOCYTE ESTERASE ,URINE 1+ (NEGATIVE); NITRITE,URINE NEGATIVE (NEGATIVE); PH,URINE 8 (4.5-8.0); PROTEIN,URINE NEGATIVE (NEGATIVE); UROBILINOGEN,URINE 1 MG/DL (0.0-1.0)
[2019-11-23 20:17] LABS: COLOR,URINE YELLOW
[2019-11-23 20:21] LABS: ANION GAP 9 mmol/L (5-15); BLOOD UREA NITROGEN 7 mg/dL (7-18); CALCIUM 8.8 MG/DL (8.5-10.1); CARBON DIOXIDE 27 MMOL/L (21-32); CHLORIDE 105 MMOL/L (98-107); CREATININE 0.6 MG/DL (0.55-1.30); POTASSIUM 4.1 MMOL/L (3.5-5.1); SODIUM 141 MMOL/L (136-145)
[2019-11-23 20:28] LABS: ALANINE AMINOTRANSFERASE 43 U/L (12-78); ALBUMIN 3.7 G/DL (3.4-5.0); ALBUMIN/GLOBULIN RATIO 1.1 (1.0-2.7); ALKALINE PHOSPHATASE 86 U/L (46-116); ASPARTATE AMINO TRANSFERASE 15 U/L (15-37); BILIRUBIN,TOTAL 0.2 MG/DL (0.2-1.0)
--- NOTE | 2019-11-23 20:46 | Diagnostic Imaging Report ---
Indication:Lower abdominal and pelvic pain Technique: Grayscale and duplex Doppler imaging of the pelvis performed utilizing a transabdominal and endovaginal scan. Comparison: None Findings: The size, contour, and configuration of the uterus is within normal limits. The endometrium is uniformly echogenic and normal in thickness. Multiple nabothian cysts are present. The endometrium is 7.5 mm in thickness. The ovaries appear normal bilaterally with good dopplerable blood flow. There is no significant free fluid identified. Right ovary measures 2.8 x 2.4 x 1.9 cm. Left ovary 4.3 x 3.6 x 3.0 cm. There is a dominant left ovarian cyst measuring approximately 2.8 cm. IMPRESSION: 2.8 cm left ovarian cyst. Suggest follow-up at 6 weeks
[2019-11-23] MEDS ORDERED: NITROFURANTOIN100 M2 ORAL (21:00)
[2019-11-23] MEDS ORDERED: IBUPROFEN600 MG ORAL (21:00)
--- NOTE | 2019-11-23 21:00 | Emergency Room Report ---
History of Present Illness General Chief Complaint: Pain Source: Patient Present Illness HPI 39-year-old female with history of bilateral ovarian cyst and uterine fibroids and plantar fasciitis here complaining of sudden onset left lower quadrant abdominal pain, the site of her ovarian cyst, and vaginal spotting. Patient reported her last menstrual period was October 29 and she is usually regular. After complains of urinary frequency and urgency x1 day. Denies fever and chills, nausea vomiting, flank pain. Also complains of exacerbation of her left foot plantar fasciitis. Has not taken medication for pain. Denies syncope , lightheadedness, chest pain, shortness of breath, palpitation, headache and dizziness. 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 Denies at this time. Allergies: Coded Allergies: No Known Allergies (Unverified , 04/01/19) Patient History Past Medical History: see triage record Past Surgical History: none Pertinent Family History: none Last Menstrual Period: 10/29/19 Now: No Immunizations: UTD Reviewed Nursing Documentation: PMH: Agreed; PSxH: Agreed Nursing Documentation-PMH Past Medical History: No History, Except For Review of Systems All Other Systems: negative except mentioned in HPI Physical Exam Vital Signs Date Time Temp Pulse Resp B/P (MAP) Pulse Ox O2 Delivery O2 Flow Rate FiO2 11/23/19 19:18 98.4 91 18 116/85 (95) 96 Room Air Sp02 EP Interpretation: reviewed, normal General Appearance: no apparent distress, alert, GCS 15, non-toxic Head: normocephalic, atraumatic Eyes: bilateral eye normal inspection, bilateral eye PERRL ENT: hearing grossly normal, normal pharynx, no angioedema, normal voice Neck: full range of motion, supple/symm/no masses Respiratory: chest non-tender, lungs clear, normal breath sounds, no rhonchi, no respiratory distress, no retraction, speaking full sentences Cardiovascular #1: regular rate, rhythm, no edema, no murmur Gastrointestinal: normal bowel sounds, non tender, soft, no mass, no organomegaly, no peritonitis, no bruit, non-distended, no guarding, no hernia, no pulsatile mass, no rebound Genitourinary: normal inspection, no CVA tenderness Musculoskeletal: back normal, no calf tenderness Neurologic: alert, motor strength/tone normal, oriented x3, sensory intact, responsive, speech normal Psychiatric: judgement/insight normal, memory normal, mood/affect normal, no suicidal/homicidal ideation Skin: no rash Lymphatic: no adenopathy Medical Decision Making PA Attestation All my diagnosis and treatment plans were reviewed ad discussed with my supervising physician Dr. Guerrero Diagnostic Impression: Primary Impression: Ovarian cyst Additional Impressions: UTI (urinary tract infection) Plantar fasciitis ER Course 39-year-old female with history of bilateral ovarian cyst and uterine fibroids and plantar fasciitis here complaining of sudden onset left lower quadrant abdominal pain, the site of her ovarian cyst, and vaginal spotting. Patient reported her last menstrual period was October 29 and she is usually regular. After complains of urinary frequency and urgency x1 day. Denies fever and chills, nausea vomiting, flank pain. Also complains of exacerbation of her left foot plantar fasciitis. Has not taken medication for pain. Denies syncope , lightheadedness, chest pain, shortness of breath, palpitation, headache and dizziness. 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 Denies at this time. Ddx considered but are not limited to: UTI, pyelonephritis, urinary incontinence , prolapsed bladder, ruptured ovarian cyst, hemorrhagic ovarian cyst, increased size ovarian cyst, Vital signs: are WNL, pt. is afebrile H&PE are most consistent with: Left-sided hemorrhagic ovarian cyst, UTI, plantar fasciitis ORDERS: UA, urine cx, urine test, CBC, CMP, pelvic ultrasound, Motrin , Macrobid ED INTERVENTIONS: Toradol DISCHARGE: At this time pt. is stable for d/c to home. Will provide printed patient care instructions, and any necessary prescriptions. Care plan and follow up instructions have been discussed with the patient prior to discharge. Patient to follow-up primary care provider and moving picture operator, at this time no signs of ruptured ovarian cyst noted, the size of the bilateral cysts has not changed since the last visit the patient had with us in September 2019. Patient to consult with moving picture operator regarding removal of the ovarian cysts. Also follow-up with primary doctor regarding recurrent episodes of plantars fasciitis. If worsening symptoms return to the emergency room. CT/MRI/US Diagnostic Results CT/MRI/US Diagnostic Results : Imaging Test Ordered: Pelvic ultrasound Impression Impression: Arterial and venous flow to the ovaries noted. Incidental findings: The uterus measures 7.5 x 4.6 x 4.7 cm. Right ovary measures 2.8 x 2.4 x 1.97 m. The left ovary measures 4.3 x 3.5 x 2.9 cm. Nabothian cyst. A 2.6 cm complex left ovarian cyst, most likely hemorrhagic cyst. Reimaging in 2 months is advised to follow. Last Vital Signs Date Time Temp Pulse Resp B/P (MAP) Pulse Ox O2 Delivery O2 Flow Rate FiO2 11/23/19 20:49 98.5 11/23/19 19:18 91 18 116/85 (95) 96 Room Air Disposition: HOME, SELF-CARE Condition: Stable Scripts Ibuprofen* (MOTRIN*) 600 Mg Tablet 600 MG ORAL Q8H PRN for For Pain, #30 TAB 0 Refills Prov: Beny Pelayo 11/23/19 Nitrofurantoin Monohyd/M-Cryst* (MACROBID 100 MG*) 100 Mg Capsule 100 MG ORAL EVERY 12 HOURS for 7 Days, #10 CAP Prov: Beny Pelayo 11/23/19 Patient Instructions: Ovarian Cyst, [id number], Plantar Fasciitis, Urinary Tract Infection, [id number] Additional Instructions: Take medication as directed, follow-up with your primary care provider, increase oral hydration, if worsening symptoms return to the emergency room also need to be seen by moving picture operator for further evaluation Beny Pelayo Nov 23, 2019 20:59
[2019-11-23 21:13] VITALS: BP 122/75
--- NOTE | 2019-11-23 21:13 | NUR ---
ED Nurse Note: Unable to waste Ketorolac 15mg via pyxis as system is not showing waste documentation. Charge Nurse aware. Wasted 15mg Ketorolac in med room.
--- NOTE | 2019-11-23 21:13 | NUR ---
ER DISCHARGE NOTE: Patient is cleared to be discharged per ERMD, pt is aox4, on room air, with stable vital signs. pt was given dc and prescription instructions, pt was able to verbalize understanding, pt id band and iv site removed intact without complications. pt is able to ambulate with steady gait. pt took all belongings. pt stable upon discharge.
== END 2019-11-23 21:13 | disposition home or self-care (01) ==
LOC: EMR 21:13
DX: N83.202 Unspecified ovarian cyst, left side (principal); N39.0 Urinary tract infection, site not specified; M72.2 Plantar fascial fibromatosis
CPT/HCPCS: 36415; 76830; 80053; 81003; 81025; 85025; 96374; J1885; Z7502; 99284

== ENCOUNTER 2020-01-12 10:12 | Emergency (ER) | payer MEDICAID, OTHER ==
[~2020-01-12] VITALS: Ht 160 cm; Wt 93.0 kg
[~2020-01-12 10:12] MED LIST changes: +NITROFURANTOIN100 M2 ORAL
[2020-01-12 10:40] VITALS: BP 123/72
--- NOTE | 2020-01-12 10:40 | NUR ---
ED Nurse Note:Pt walked in from home c/o "head spinning" and having difficulty with balance. Pt was treated for vertigo @ [facility] about 6 months ago. Respirations even and unlabored on room air. Vitals stable as documented.
--- NOTE | 2020-01-12 10:52 | Emergency Room Report ---
History of Present Illness General Chief Complaint: Vertigo Source: Patient Present Illness HPI Disclaimer: Please note that this report is being documented using [employer] technology. This can lead to erroneous entry secondary to incorrect interpretation by the dictating instrument. HPI: 39-year-old female presents with vertigo. She has a history of peripheral vertigo. She normally takes meclizine however she ran out of her medication. Reports nausea but no vomiting. She reports room spinning with head movement. Denies trauma. PMH: Vertigo PSH: Reviewed Social Hx: Denies smoking drinking or illicit drug use Allergies: Coded Allergies: No Known Allergies (Unverified , 04/01/19) COVID-19 Screening Contact w/high risk pt: No Recent Travel to affected area: No Experienced COVID-19 symptoms?: No Patient History Last Menstrual Period: 11/29/19 Now: No : 5 Para: 4 Nursing Documentation-PMH Past Medical History: No History, Except For Review of Systems All Other Systems: negative except mentioned in HPI Physical Exam Vital Signs Date Time Temp Pulse Resp B/P (MAP) Pulse Ox O2 Delivery O2 Flow Rate FiO2 01/12/20 10:29 98.6 96 20 123/72 (89) 97 Room Air Sp02 EP Interpretation: reviewed, normal General Appearance: well appearing, no apparent distress Head: normocephalic, atraumatic Eyes: bilateral eye PERRL, bilateral eye EOMI ENT: hearing grossly normal, moist mucus membranes Neck: full range of motion, supple Respiratory: lungs clear, normal breath sounds, no rhonchi, no respiratory distress, no retraction, no wheezing Cardiovascular #1: normal peripheral pulses, regular rate, rhythm, no murmur Gastrointestinal: non tender, soft, non-distended, no guarding Neurologic: alert, motor strength/tone normal, bar manager III-XII nml as tested, oriented x3, normal gait, no focal defects Skin: normal color, warm/dry Medical Decision Making Diagnostic Impression: Primary Impression: Vertigo ER Course Patient presented with complaints of recurrent vertigo. She was ambulatory alert and oriented in the ER. Low suspicion for stroke at this time. She was feeling improved after meclizine and Zofran. She has had similar symptoms in the past. Patient was discharged with meclizine as needed in addition to Zofran as needed for nausea and follow-up with her PMD. She was given return precautions. Last Vital Signs Date Time Temp Pulse Resp B/P (MAP) Pulse Ox O2 Delivery O2 Flow Rate FiO2 01/12/20 10:29 98.6 96 20 123/72 (89) 97 Room Air Disposition: HOME, SELF-CARE Condition: Improved Scripts Meclizine Hcl* (MECLIZINE*) 25 Mg Tablet 25 MG ORAL THREE TIMES A DAY PRN for for dizziness, #30 TAB Prov: Cordell Yuen M.D. 01/12/20 Ondansetron Odt* (ZOFRAN ODT*) 4 Mg Tab.rapdis 4 MG BC EVERY 6 HOURS PRN for Nausea & Vomiting, #10 TAB 0 Refills Prov: Cordell Yuen M.D. 01/12/20 Referrals: [facility],REFERRING (PCP) Cordell Yuen M.D. Jan 12, 2020 10:52
[2020-01-12] MEDS ORDERED: ONDANSETRON ODT4 MG BC (10:53)
[2020-01-12] MEDS ORDERED: MECLIZINE HCL25 MG ORAL (10:53)
[2020-01-12] MEDS ORDERED: Meclizine 25mg tab ORAL ONE (11:00)
[2020-01-12 11:07] VITALS: BP 129/76
--- NOTE | 2020-01-12 11:07 | NUR ---
ER DISCHARGE NOTE:Patient is cleared to be discharged per ERMD, pt is aox4, on room air, with stable vital signs as documented. pt was given dc and prescription instructions and was able to verbalize understanding, pt id band removed. pt is able to ambulate with steady gait. pt took all belongings.
== END 2020-01-12 11:07 | disposition home or self-care (01) ==
LOC: EMR 10:46
DX: R42 Dizziness and giddiness (principal); R11.0 Nausea
CPT/HCPCS: 99282

== ENCOUNTER 2020-03-11 00:46 | Emergency (ER) | payer MEDICAID ==
[~2020-03-11] VITALS: Ht 160 cm; Wt 97.5 kg
--- NOTE | 2020-03-11 01:10 | NUR ---
ED Nurse Note: Pt walked into ED for c/o bilat feet pain that has become increasingly worse since july. Pt states pain radiates to R leg from her R foot. Pt notes hx of plantar fasciitis. Pt is aaox4, breathing is normal and unlabored, no cardiac distress noted.
[2020-03-11 01:17] VITALS: BP 131/70
[2020-03-11] MEDS ORDERED: IBUPROFEN600 M1 ORAL ×2 (01:23)
--- NOTE | 2020-03-11 01:28 | Emergency Room Report ---
History of Present Illness General Chief Complaint: Pain Source: Patient Present Illness HPI Disclaimer: Please note that this report is being documented using [employer] technology. This can lead to erroneous entry secondary to incorrect interpretation by the dictating instrument. HPI: 39-year-old female with history of plantar fasciitis presents for evaluation of worsening foot pain. The patient is being treated by her movers for bilateral plantar fasciitis with monthly cortisone injections. She is due next week but states the pain in the inside of the arch is now spreading over the medial malleolus and up the medial aspect of the left ankle. Denies twisting injury, fall, trauma. She states is the same plantar fasciitis pain she has been dealing with for several months. She wears leg braces, compression bandages, stockings, applies ice and performs rehab exercises. Denies swelling, skin breakdown, numbness or other complaints at this time. PMH: Plantar fasciitis PSH: Reviewed Allergies: Reviewed Social Hx: Reviewed Allergies: Coded Allergies: No Known Allergies (Unverified , 04/01/19) COVID-19 Screening Contact w/high risk pt: No Recent Travel to affected area: No Experienced COVID-19 symptoms?: No COVID-19 Testing performed [employer]UNTER: No Patient History Last Menstrual Period: 03/04/20 Now: No Nursing Documentation-PMH Past Medical History: No History, Except For Review of Systems All Other Systems: negative except mentioned in HPI Physical Exam Vital Signs Date Time Temp Pulse Resp B/P (MAP) Pulse Ox O2 Delivery O2 Flow Rate FiO2 03/11/20 00:58 98.6 86 16 131/70 (90) 97 Room Air General: Awake and alert, no acute distress HEENT: NC/AT. EOMI. Resp: Normal work of breathing Skin: Intact. No abrasions, laceration or rash over the exposed skin MSK: Normal tone and bulk. Moving all extremities. No obvious deformity. Tenderness palpation over the arches bilaterally without overlying deformity. There is mild tenderness palpation over the medial aspect of the left ankle but no bony tenderness. Neuro: Awake and alert. Mentating appropriately Medical Decision Making Diagnostic Impression: Primary Impression: Overuse injury of lower leg Additional Impression: Plantar fasciitis, bilateral ER Course 39-year-old female presents for bilateral foot pain and pain spreading over the left ankle. No evidence of trauma the patient denies trauma or injury otherwise. She has been walking pigeon toed on the left foot due to worsening plantar fascia pain. She is due for cortisone shot next week by her movers , Dr. Johnson. Likely this an overuse injury. Do not believe she requires emergent labs or imaging at this time. Will treat with Toradol, ice and compression bandage in the ED and discharged to follow-up with her movers for cortisone injection and reevaluation of her current therapies. Patient agrees with this plan and is stable for outpatient follow-up. Last Vital Signs Date Time Temp Pulse Resp B/P (MAP) Pulse Ox O2 Delivery O2 Flow Rate FiO2 03/11/20 01:17 98.6 86 16 131/70 97 Room Air Disposition: HOME, SELF-CARE Condition: Stable Scripts Ibuprofen* (MOTRIN*) 600 Mg Tablet 600 MG ORAL Q6H PRN for For Pain, #30 TAB 0 Refills Prov: Corey Galo MD 03/11/20 Patient Instructions: Plantar Fasciitis Additional Instructions: Continue to follow-up with podiatry and discuss schedule for next cortisone injection. Continue the other measures including the brace, ice, exercises to relieve your plantar fascia pain. Return with any new or worsening symptoms. Corey Galo MD Mar 11, 2020 01:28
[2020-03-11] MEDS ORDERED: Ketorolac 30mg Inj IM ONE (01:30)
[2020-03-11 01:35] VITALS: BP 125/78
--- NOTE | 2020-03-11 01:35 | NUR ---
ER DISCHARGE NOTE: Patient is cleared to be discharged per ERMD, pt is aox4, on room air, with stable vital signs. pt was given dc instructions, pt was able to verbalize understanding, pt id band removed. pt is able to ambulate with steady gait. pt took all belongings.
== END 2020-03-11 01:35 | disposition home or self-care (01) ==
LOC: EMR 01:10
DX: S89.92XA Unspecified injury of left lower leg, initial encounter (principal); X58.XXXA Exposure to other specified factors, initial encounter; Y92.9 Unspecified place or not applicable; M72.2 Plantar fascial fibromatosis
CPT/HCPCS: 96372; J1885; Z7502; 99283

== ENCOUNTER 2020-03-21 23:22 | Emergency (ER) | payer MEDICAID ==
[~2020-03-21] VITALS: Ht 162.6 cm; Wt 97.5 kg
[~2020-03-21 23:22] MED LIST changes: +IBUPROFEN600 M1 ORAL
[2020-03-21 23:47] VITALS: BP 110/72
[2020-03-22] MEDS ORDERED: Acetaminophen 500mg (ES) tab ORAL ONE
[2020-03-22] MEDS ORDERED: Methocarbamol 750mg tab ORAL ONE
[2020-03-22] MEDS ORDERED: ROBAXIN-750750 MG PO ×2 (00:02)
[2020-03-22] MEDS ORDERED: TYLENOL EXTRA500 MG ORAL ×2 (00:02)
[2020-03-22] MEDS ORDERED: LIDODERM700 M1 TOPIC ×2 (00:02)
[2020-03-22 00:12] VITALS: BP 108/74
--- NOTE | 2020-03-22 00:55 | Emergency Room Report ---
History of Present Illness General Chief Complaint: Neck Pain Source: Patient Present Illness HPI 39-year-old female presents to ED complaining of neck pain. Started 2 days ago when she woke up. Pain is localized to left side of neck radiating down her upper back. Dull, 9 out of 10. Denies neck stiffness. Denies headache. Denies fevers or chills. Denies any fall or injury. No other aggravating relieving factors. Denies any other associated symptoms Allergies: Coded Allergies: No Known Allergies (Unverified , 04/01/19) COVID-19 Screening Contact w/high risk pt: No Recent Travel to affected area: No Experienced COVID-19 symptoms?: No COVID-19 Testing performed [employer]: No COVID-19 Screening: Negative COVID-19 COVID-19 Testing Source: @ workplace 1 wk ago Patient History Social History: Denies: smoking, alcohol use, drug use Last Menstrual Period: 02/26 Now: No : 5 Para: 4 Immunizations: UTD Reviewed Nursing Documentation: PMH: Agreed; PSxH: Agreed Nursing Documentation-PMH Past Medical History: No Stated History Review of Systems All Other Systems: negative except mentioned in HPI Physical Exam Vital Signs Date Time Temp Pulse Resp B/P (MAP) Pulse Ox O2 Delivery O2 Flow Rate FiO2 03/21/20 23:42 98.4 80 19 105/68 (80) 98 Room Air Sp02 EP Interpretation: reviewed, normal General Appearance: no apparent distress, alert, GCS 15, non-toxic, obese Head: normocephalic, atraumatic Eyes: bilateral eye normal inspection, bilateral eye PERRL ENT: hearing grossly normal, normal pharynx, no angioedema, normal voice Neck: full range of motion, supple, no meningismus, no bony tend, supple/symm/ no masses, tender lateral Respiratory: chest non-tender, lungs clear, normal breath sounds, speaking full sentences Cardiovascular #1: regular rate, rhythm, no edema Cardiovascular #2: 2+ carotid (R), 2+ carotid (L), 2+ radial (R), 2+ radial (L) , 2+ dorsalis pedis (R), 2+ dorsalis pedis (L) Gastrointestinal: normal bowel sounds, non tender, soft, non-distended, no guarding, no rebound Rectal: deferred Genitourinary: normal inspection, no CVA tenderness Musculoskeletal: back normal, normal range of motion, gait/station normal, non- tender Neurologic: alert, motor strength/tone normal, oriented x3, sensory intact, responsive, speech normal Psychiatric: judgement/insight normal, memory normal, mood/affect normal, no suicidal/homicidal ideation Reflexes: 3+ bicep (R), 3+ bicep (L), 3+ tricep (R), 3+ tricep (L), 3+ knee (R) , 3+ knee (L) Skin: no rash Lymphatic: no adenopathy Medical Decision Making Diagnostic Impression: Primary Impression: Cervical strain Qualified Codes: S16.1XXA - Strain of muscle, fascia and tendon at neck level , initial encounter ER Course Hospital Course 39-year-old female presents ED complaining of left-sided neck pain Differential diagnoses include: neck strain, shoulder strain, dislocation/ fracture Clinical course Patient placed on stretcher. After initial history and physical exam reveals female in no acute distress. On exam there is no midline neck tenderness or shoulder tenderness. Full range of motion to the shoulder. There is pain over the left trapezius. Consistent with a neck strain/shoulder strain I discussed findings with patient. Reassurance given. No imaging required at this time. Given Tylenol, Lidoderm, Robaxin. Safe for discharge for close outpatient follow-up. Provide referrals Diagnosis - cervical strain Stable and discharged to home with prescription for Tylenol, Robaxin, Lidoderm. Followup with PMD. Return to ED if symptoms recur or worsen Last Vital Signs Date Time Temp Pulse Resp B/P (MAP) Pulse Ox O2 Delivery O2 Flow Rate FiO2 03/22/20 00:12 98.0 70 20 108/74 98 Room Air Status: improved Disposition: HOME, SELF-CARE Condition: Stable Scripts Lidocaine Patch* (Lidoderm Patch*) 1 Each Adh..patch 1 PATCH TOPIC DAILY, #7 PATCH 0 Refills Patch(es) may remain in place for up to 12 hours in any 24-hour period. Prov: Blane Guerrero MD 03/22/20 Methocarbamol* (ROBAXIN-750*) 750 Mg Tablet 750 MG PO TID, #21 TAB 0 Refills Prov: Blane Guerrero MD 03/22/20 Acetaminophen* (TYLENOL EXTRA STRENGTH*) 500 Mg Tablet 500 MG ORAL Q8H PRN for Prn Headache/Temp > 101, #30 TAB 0 Refills Prov: Blane Guerrero MD 03/22/20 Referrals: NON PHYSICIAN (PCP) [facility] Open 24 hour /7 days a week by Appointment Only [address] [facility] [id number] Departure Forms: Return to Work Return to Work Date: Mar 24, 2020 Work Restrictions: No Heavy Lifting Patient Instructions: Cervical Strain and Sprain With [facility] Blane Guerrero MD Mar 22, 2020 00:55
== END 2020-03-22 00:12 | disposition home or self-care (01) ==
LOC: EMR 23:55
DX: S16.1XXA Strain of muscle, fascia and tendon at neck level, initial encounter (principal); E66.9 Obesity, unspecified; X58.XXXA Exposure to other specified factors, initial encounter; Y92.9 Unspecified place or not applicable; Z68.36 Body mass index [BMI] 36.0-36.9, adult
CPT/HCPCS: 99282

== ENCOUNTER 2020-03-26 22:07 | Emergency (ER) | payer MEDICAID ==
[~2020-03-26] VITALS: Ht 160 cm; Wt 95.7 kg
[~2020-03-26 22:07] MED LIST changes: +LIDODERM700 M1 TOPIC; +ROBAXIN-750750 MG PO; +TYLENOL EXTRA500 MG ORAL
[2020-03-26 22:12] VITALS: BP 126/77
--- NOTE | 2020-03-26 22:12 | NUR ---
ED Nurse Note: Walk-in patient with complaints of abdominal pain 10/10, sharp.
--- NOTE | 2020-03-26 22:35 | Emergency Room Report ---
History of Present Illness General Chief Complaint: Abdominal Pain Source: Patient Present Illness HPI This is a 39-year-old female with no significant past medical history. Patient presents with chief complaint of abdominal pain. Onset for last 2 days. This is a recurrent issue. Never had any work-up is for CT scan or endoscopy. Pain is 8 out of 10. Worse with palpation and eating. Better with rest. No fever chills but no nausea no vomiting. No diarrhea. Pain is sharp in nature. 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 Patient History Past Medical History: see triage record, old chart reviewed Past Surgical History: none Pertinent Family History: none Social History: Denies: smoking Last Menstrual Period: 03-26-2020 Now: No Immunizations: other Reviewed Nursing Documentation: PMH: Agreed; PSxH: Agreed Review of Systems Eye: Denies: eye pain, blurred vision ENT: Denies: ear pain, nose congestion, throat swelling Respiratory: Denies: cough, shortness of breath Cardiovascular: Denies: chest pain, palpitations Gastrointestinal: Reports: abdominal pain; Denies: diarrhea, nausea, vomiting Musculoskeletal: Denies: back pain, joint pain Skin: Denies: rash Neurological: Denies: headache, numbness Endocrine: Denies: increased thirst, increased urine Hematologic/Lymphatic: Denies: easy bruising All Other Systems: negative except mentioned in HPI Physical Exam Vital Signs Date Time Temp Pulse Resp B/P (MAP) Pulse Ox O2 Delivery O2 Flow Rate FiO2 03/26/20 22:12 98.4 91 20 126/77 (93) 98 Room Air Vitals normal Sp02 EP Interpretation: reviewed, normal General Appearance: well appearing, no apparent distress, alert, obese Head: normocephalic, atraumatic Eyes: bilateral eye PERRL, bilateral eye EOMI ENT: hearing grossly normal, normal pharynx Neck: full range of motion, supple, no meningismus Respiratory: chest non-tender, lungs clear, normal breath sounds Cardiovascular #1: regular rate, rhythm, no murmur Gastrointestinal: normal bowel sounds, no mass, no organomegaly, no bruit, non- distended, tenderness - Epigastric Musculoskeletal: back normal, normal range of motion, gait/station normal Psychiatric: mood/affect normal Medical Decision Making Diagnostic Impression: Primary Impression: Abdominal pain Qualified Codes: R10.13 - Epigastric pain ER Course This patient presents with epigastric pain. Most likely peptic ulcer disease. No evidence of gallstone on the CT scan. No evidence of any obstruction. No evidence of kidney issue. Will discharge home. CT/MRI/US Diagnostic Results CT/MRI/US Diagnostic Results : Imaging Test Ordered: CT abdomen pelvis Impression Negative per radiologist Last Vital Signs Date Time Temp Pulse Resp B/P (MAP) Pulse Ox O2 Delivery O2 Flow Rate FiO2 03/26/20 22:12 98.4 91 20 126/77 (93) 98 Room Air Status: improved Disposition: HOME, SELF-CARE Condition: Stable Scripts Hydrocodone Bit/Acetaminophen 5-325* (NORCO 5-325 TABLET*) 1 Each Tablet 1 TAB ORAL Q6H PRN for FOR PAIN, #12 TAB 0 Refills Prov: Kb Patton MD 03/27/20 Omeprazole Magnesium (PRILOSEC OTC) 20 Mg Tablet. 20 MG ORAL DAILY, #30 TAB Prov: Kb Patton MD 03/27/20 Referrals: [facility],REFERRING (PCP) Additional Instructions: Follow-up with your doctor within a week. You may benefit from a GI referral for endoscopy. Return if symptoms worsen. Kb Patton MD Mar 26, 2020 22:35
[2020-03-26] MEDS ORDERED: HYDROmorphone 1mg/ml Carpuject IVP ONE (22:45)
[2020-03-26] MEDS ORDERED: Pantoprazole Inj IV ONE (22:45)
--- NOTE | 2020-03-26 22:47 | NUR ---
ED Nurse Note: Patient tolerated medication administration well, will continue to monitor for CT.
[2020-03-26 22:58] LABS: BASOPHILS % (AUTO) 1.2 % (0.0-2.0); EOSINOPHILS % (AUTO) 1.3 % (0.0-3.0); HEMATOCRIT 41.7 % (37.0-47.0); LYMPHOCYTES % (AUTO) 39.8 % (20.0-45.0); MEAN CORPUSCULAR VOLUME 92 FL (80-99); MONOCYTES % (AUTO) 8.3 % (1.0-10.0); NEUTROPHILS % (AUTO) 49.4 % (45.0-75.0); PLATELET COUNT 283 K/UL (150-450); RED BLOOD COUNT 4.53 M/UL (4.20-5.40); RED CELL DISTRIBUTION WIDTH 14.4 % (11.6-14.8); WHITE BLOOD COUNT 7.4 K/UL (4.8-10.8)
[2020-03-26 23:08] LABS: ANION GAP 9 mmol/L (5-15); BLOOD UREA NITROGEN 10 mg/dL (7-18); CALCIUM 8.6 MG/DL (8.5-10.1); CARBON DIOXIDE 26 MMOL/L (21-32); CHLORIDE 105 MMOL/L (98-107); CREATININE 1.1 MG/DL (0.55-1.30); POTASSIUM 3.6 MMOL/L (3.5-5.1); SODIUM 140 MMOL/L (136-145)
[2020-03-26 23:12] LABS: ALANINE AMINOTRANSFERASE 36 U/L (12-78); ALBUMIN 3.6 G/DL (3.4-5.0); ALKALINE PHOSPHATASE 85 U/L (46-116); ASPARTATE AMINO TRANSFERASE 13 U/L (15-37); BILIRUBIN,TOTAL 0.2 MG/DL (0.2-1.0)
[2020-03-26 23:20] LABS: APPEARANCE,URINE SLIGHTLY CLOUDY; BILIRUBIN, URINE NEGATIVE (NEGATIVE); COLOR,URINE PALE YELLOW; GLUCOSE, URINE (UA) NEGATIVE (NEGATIVE); KETONES,URINE NEGATIVE (NEGATIVE); LEUKOCYTE ESTERASE ,URINE 1+ (NEGATIVE); NITRITE,URINE NEGATIVE (NEGATIVE); PH,URINE 6.5 (4.5-8.0); PROTEIN,URINE 2+ (NEGATIVE); UROBILINOGEN,URINE NORMAL MG/DL (0.0-1.0)
[2020-03-26] MEDS ORDERED: HYDROmorphone 1mg/ml Carpuject ONE (23:25)
--- NOTE | 2020-03-26 23:35 | NUR ---
ED Nurse Note: Patient went down for CT accompanied by radiology rn.
--- NOTE | 2020-03-26 23:47 | NUR ---
ED Nurse Note: Patient returned from CT accompanied by supply tech without incident.
[2020-03-27] MEDS ORDERED: HYDROmorphone 1mg/ml Carpuject IVP ONE
[2020-03-27] MEDS ORDERED: HYDROmorphone 2mg tab ORAL ONE
--- NOTE | 2020-03-27 00:22 | Diagnostic Imaging Report ---
EXAM: CT Abdomen and Pelvis Without Intravenous Contrast CLINICAL HISTORY: ABD PAIN TECHNIQUE: Axial computed tomography images of the abdomen and pelvis without intravenous contrast. CTDI is 13 mGy and DLP is 735 mGy-cm. One or more of the following dose reduction techniques were used: automated exposure control, adjustment of the mA and/or kV according to patient size, use of iterative reconstruction technique. COMPARISON: No relevant prior studies available. FINDINGS: Lung bases: No mass. No consolidation. ABDOMEN: Liver: Unremarkable. Gallbladder and bile ducts: Unremarkable. Pancreas: No ductal dilation. Spleen: Unremarkable. Adrenals: Unremarkable. Kidneys and ureters: No obstructing stones. No hydronephrosis. Stomach and bowel: No bowel obstruction. No bowel wall thickening. PELVIS: Appendix: No evidence of appendicitis. Bladder: No stones. Reproductive: Unremarkable. ABDOMEN and PELVIS: Intraperitoneal space: Unremarkable. Bones/joints: No acute fractures. Severe endplate sclerotic changes at L5-S1 with disc bulging not causing significant spinal canal stenosis. Soft tissues: Unremarkable. Vasculature: No abdominal aortic aneurysm. Lymph nodes: No enlarged lymph nodes. IMPRESSION: No acute findings. Severe endplate sclerotic changes at L5-S1 with disc bulging not causing significant spinal canal stenosis.
[2020-03-27] MEDS ORDERED: PRILOSEC OTC20 MG ORAL (00:52)
[2020-03-27] MEDS ORDERED: NORCO 5-325 TA1 EAC1 ORAL (00:52)
--- NOTE | 2020-03-27 00:58 | NUR ---
ED Nurse Note: PAtient unable to drive at this time, will rest until medication wears off.
[2020-03-27 02:44] VITALS: BP 126/77
--- NOTE | 2020-03-27 02:44 | NUR ---
ED Nurse Note: Patient awake and alert and able to walk with steady gait. Expresses being able to drive at this time. Patient cleared for discharge by ERMD, Patient verbalized understanding of discharge instructions and departed with all belongings in stable conditions with stable gait.
== END 2020-03-27 02:44 | disposition home or self-care (01) ==
LOC: EMR 22:26
DX: R10.13 Epigastric pain (principal)
CPT/HCPCS: 36415; 74176; 80053; 80307; 81003; 81025; 83690; 85025; 96374; 96375; 96376; J1170; J2405; S0164; Z7502; 99284

== ENCOUNTER 2020-03-30 00:03 | Emergency (ER) | payer MEDICAID ==
[~2020-03-30] VITALS: Ht 160 cm; Wt 95.7 kg
[~2020-03-30 00:03] MED LIST changes: +NORCO 5-325 TA1 EAC1 ORAL; +PRILOSEC OTC20 MG ORAL
[2020-03-30 00:25] VITALS: BP 130/85
[2020-03-30] MEDS ORDERED: EPINEPHrine 1mg/1ml Amp IM ONE (00:45)
[2020-03-30] MEDS ORDERED: Solu-MEDROL 125mg Inj IM ONE (00:45)
--- NOTE | 2020-03-30 01:20 | Emergency Room Report ---
History of Present Illness General Chief Complaint: Skin Rash/Abscess Source: Patient Present Illness HPI Patient presented with itching all over her body. It mainly is her upper back and scalp where it began. She used a new hair product couple of days ago. Not taken any medication and she never had a reaction like this before. No swelling in her mouth, wheezing, nausea or vomiting or dizziness. She is unable to stop scratching as the itching is intense. She denies any fevers or chills. She is on her menstruation at this time. She denies dysuria. She states she is undergoing a lot of stress at this time. No sore throat, chest pain, palpitations, nausea, vomiting, diarrhea, dysuria, abdominal pain, shortness of breath, joint pain, visual changes, dizziness, headache. 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 History Past Medical History: see triage record Social History: Denies: smoking Social History Narrative Brought by her mother Now: No Reviewed Nursing Documentation: PMH: Agreed; PSxH: Agreed Review of Systems All Other Systems: negative except mentioned in HPI Physical Exam Vital Signs Date Time Temp Pulse Resp B/P (MAP) Pulse Ox O2 Delivery O2 Flow Rate FiO2 03/30/20 00:17 Room Air 03/30/20 00:25 98.5 75 16 130/85 98 Sp02 EP Interpretation: reviewed, normal General Appearance: well appearing, no apparent distress, GCS 15, non-toxic Head: normocephalic Eyes: bilateral eye normal inspection, bilateral eye PERRL, bilateral eye EOMI ENT: normal pharynx, no angioedema, uvula midline, moist mucus membranes Neck: supple Respiratory: lungs clear, normal breath sounds Cardiovascular #1: regular rate, rhythm Cardiovascular #2: 2+ radial (R) Gastrointestinal: normal inspection, normal bowel sounds, non tender, non- distended, overweight Musculoskeletal: back normal, normal range of motion, gait/station normal Neurologic: alert, oriented x3, grossly normal Psychiatric: anxious Skin: rash - [id number] reaction in a yolk-like fashion upper chest and back extending to the torso, warm/dry Medical Decision Making Diagnostic Impression: Primary Impression: Allergic reaction Qualified Codes: T78.40XA - Allergy, unspecified, initial encounter Additional Impression: Left arm pain post IM injection ER Course Patient presents with hives in a distribution consistent with possible allergy. She has also felt stressed. Differential includes allergic reaction, viral syndrome causing hives, food allergy, chemical allergy, anaphylaxis amongst others. Suspicion is highest for reaction to the new hair product. Patient be treated with IM epinephrine and IM Solu-Medrol and oral Benadryl. Patient states itching is stopped but now is complaining about pain in her left arm. Neurovascular is normal. Patient is placed in a sling. Sling position is excellent and distal neurovascular exam is normal. Discussed treatment plan with patient. Patient stable for outpatient observation and treatment. Last Vital Signs Date Time Temp Pulse Resp B/P (MAP) Pulse Ox O2 Delivery O2 Flow Rate FiO2 03/30/20 01:30 98.5 70 16 130/85 98 Room Air Status: improved Disposition: HOME, SELF-CARE Condition: Improved Scripts Diphenhydramine Hcl* (BENADRYL*) 25 Mg Capsule 25 MG ORAL Q6H PRN for Itching, #14 CAP Prov: Jerry Yin MD 03/30/20 Prednisone* (PREDNISONE*) 20 Mg Tablet 40 MG ORAL DAILY, #10 TAB Prov: Jerry Yin MD 03/30/20 Acetaminophen (Tylenol) 325 Mg Tablet 650 MG ORAL Q6H PRN for Prn Pain/Headache/Temp > 101, #20 TAB 0 Refills Prov: Jerry Yin MD 03/30/20 Referrals: [facility],REFERRING (PCP) Jerry Yin MD Mar 30, 2020 01:20
[2020-03-30] MEDS ORDERED: BENADRYL25 MG ORAL (01:23)
[2020-03-30] MEDS ORDERED: TYLENOL325 MG ORAL ×2 (01:23→11:51)
[2020-03-30] MEDS ORDERED: PREDNISONE20 MG ORAL (01:23)
[2020-03-30 01:30] VITALS: BP 130/85
[2020-03-30] MEDS ORDERED: HYDROcodone/Acetamin 5/325 tab ORAL ONE (01:30)
[2020-03-30] MEDS ORDERED: LIDODERM700 M1 TOPIC (11:51)
[2020-03-30] MEDS ORDERED: IBUPROFEN600 M1 ORAL (11:51)
== END 2020-03-30 01:30 | disposition home or self-care (01) ==
LOC: EMR 00:46
DX: T78.49XA Other allergy, initial encounter (principal); M79.602 Pain in left arm; X58.XXXA Exposure to other specified factors, initial encounter
CPT/HCPCS: 96372; J0171; J2930; Z7502; 99283

== ENCOUNTER 2020-03-30 11:23 | Emergency (ER) | payer MEDICAID ==
[~2020-03-30] VITALS: Ht 160 cm; Wt 95.7 kg
[~2020-03-30 11:23] MED LIST changes: +BENADRYL25 MG ORAL; +TYLENOL325 MG ORAL
[2020-03-30 11:35] VITALS: BP 124/78
[2020-03-30] MEDS ORDERED: IBUPROFEN600 M1 ORAL (11:51)
[2020-03-30] MEDS ORDERED: LIDODERM700 M1 TOPIC (11:51)
[2020-03-30] MEDS ORDERED: TYLENOL325 MG ORAL (11:51)
--- NOTE | 2020-03-30 11:51 | Emergency Room Report ---
History of Present Illness General Chief Complaint: Upper Extremity Injury Source: Patient Present Illness HPI 39-year-old female presents with left arm pain after intramuscular shot earlier today, patient was a sharp pain worsened with movement alleviated rest severity is moderate, intermittent, patient states she had an allergic reaction earlier and was treated with IM shots states her hives have significantly improved however now she presents with left arm pain no weakness patient presents for evaluation Allergies: Coded Allergies: No Known Allergies (Unverified , 04/01/19) COVID-19 Screening Contact w/high risk pt: No Recent Travel to affected area: No Experienced COVID-19 symptoms?: No COVID-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 Patient History Past Medical History: see triage record Last Menstrual Period: currently Now: No Reviewed Nursing Documentation: PMH: Agreed; PSxH: Agreed Nursing Documentation-PMH Past Medical History: No History, Except For Review of Systems All Other Systems: negative except mentioned in HPI Physical Exam Vital Signs Date Time Temp Pulse Resp B/P (MAP) Pulse Ox O2 Delivery O2 Flow Rate FiO2 03/30/20 11:27 98.6 102 17 124/78 (93) 97 Room Air General Appearance: well appearing, no apparent distress Head: normocephalic, atraumatic ENT: hearing grossly normal, normal voice Neck: full range of motion, supple Respiratory: no respiratory distress, speaking full sentences Musculoskeletal: other - Left upper arm: 2+ radial pulse, radial median ulnar nerve intact, minimal swelling left upper arm on the deltoid where shot was administered no erythema no drainage, mild tenderness to palpation Neurologic: alert, normal gait Psychiatric: mood/affect normal Skin: no rash Medical Decision Making Diagnostic Impression: Primary Impression: Injury of left upper extremity Qualified Codes: S49.92XA - Unspecified injury of left shoulder and upper arm , initial encounter ER Course 39-year-old female presents with left upper arm pain after intramuscular injection, normal outcome with intramuscular injection, neurovascular exam is completely unremarkable, counseled patient with expectant management warm hot compresses, patient provided Lidoderm patch, pain medication, patient also wants a work note. Disposition home with return precautions Last Vital Signs Date Time Temp Pulse Resp B/P (MAP) Pulse Ox O2 Delivery O2 Flow Rate FiO2 03/30/20 11:35 98.6 107 17 124/78 97 Room Air Disposition: HOME, SELF-CARE Condition: Stable Scripts Ibuprofen* (MOTRIN*) 600 Mg Tablet 600 MG ORAL Q8H PRN for FOR PAIN, #30 TAB 0 Refills Prov: Reji Kurtz MD 03/30/20 Acetaminophen (Tylenol) 325 Mg Tablet 650 MG ORAL Q6H PRN for Prn Pain/Headache/Temp > 101, #30 TAB 0 Refills Prov: Reji Kurtz MD 03/30/20 Lidocaine Patch* (Lidoderm Patch*) 1 Each Adh..patch 1 PATCH TOPIC DAILY, #7 PATCH 0 Refills Patch(es) may remain in place for up to 12 hours in any 24-hour period. Prov: Reji Kurtz MD 03/30/20 Referrals: [facility] Tashi Varma. [facility] Departure Forms: Return to Work Return to Work Date: Apr 03, 2020 Patient Instructions: Intramuscular Injections, How and Where to Give, Muscle Pain, Adult Additional Instructions: The patient was provided with discharge instructions, notified to follow-up with a primary care doctor and or specialist in the next 24-48 hours, and to return to the ED if they have worsening of their symptoms. Please note that this report is being documented using [employer] technology. This can lead to erroneous entry secondary to incorrect interpretation by the dictating instrument. Please utilize warm hot compresses on the left arm pain will get better Reji Kurtz MD Mar 30, 2020 11:51
[2020-03-30 12:00] VITALS: BP 124/78
[2020-03-30] MEDS ORDERED: Ondansetron ODT 8mg tab ORAL ONE (12:00)
[2020-03-30] MEDS ORDERED: HYDROcodone/Acetamin 5/325 tab ORAL ONE (12:00)
== END 2020-03-30 12:00 | disposition home or self-care (01) ==
LOC: EMR 11:50
DX: S49.92XA Unspecified injury of left shoulder and upper arm, initial encounter (principal); X58.XXXA Exposure to other specified factors, initial encounter; Y93.89 Activity, other specified; Y92.238 Other place in hospital as the place of occurrence of the external cause
CPT/HCPCS: Q0162; Z7502; 99282

== ENCOUNTER 2020-05-01 16:18 | Emergency (ER) | payer MEDICAID, OTHER ==
[~2020-05-01] VITALS: Ht 162.6 cm; Wt 100.2 kg
[2020-05-01 16:44] VITALS: BP 121/77
[2020-05-01] MEDS ORDERED: Methocarbamol 750mg tab ORAL ONE (17:00)
--- NOTE | 2020-05-01 17:11 | Emergency Room Report ---
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 Patient rates the pain 10 out of 10 and does not even allow me to touch the wrist. Reports that the pain starts in the thumb area and wrist and radiates to the right shoulder. Complains of tingling however denies numbness. Has not taken medication for symptom relief. Denies any fall or injury. Denies chest pain, shortness of breath, headache and dizziness. Does not know if she has a history of carpal tunnel syndrome. Reports that she lifts a lot of heavy objects. Denies . 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 COVID-19 Screening: Negative COVID-19 COVID-19 Testing Source: Nasopharynx, oropharynx Patient History Past Medical History: see triage record Past Surgical History: none Pertinent Family History: none Now: No Immunizations: UTD Reviewed Nursing Documentation: PMH: Agreed; PSxH: Agreed Nursing Documentation-PMH Past Medical History: No History, Except For Review of Systems All Other Systems: negative except mentioned in HPI Physical Exam Vital Signs Date Time Temp Pulse Resp B/P (MAP) Pulse Ox O2 Delivery O2 Flow Rate FiO2 05/01/20 16:22 98.4 85 20 121/77 (92) 98 Room Air Sp02 EP Interpretation: reviewed, normal General Appearance: no apparent distress, alert, GCS 15, non-toxic Head: normocephalic, atraumatic Eyes: bilateral eye normal inspection, bilateral eye PERRL ENT: hearing grossly normal, normal pharynx, no angioedema, normal voice Neck: full range of motion, supple, supple/symm/no masses Respiratory: chest non-tender, lungs clear, normal breath sounds, no rhonchi, no retraction, speaking full sentences Cardiovascular #1: regular rate, rhythm, no edema, no murmur Cardiovascular #2: 2+ radial (R), 2+ radial (L) Gastrointestinal: normal bowel sounds, non tender, soft, non-distended, no guarding, no rebound Rectal: deferred Musculoskeletal: back normal, digits/nails normal, no calf tenderness, swelling - Right thumb radial side of wrist, phalene sign positive Neurologic: alert, motor strength/tone normal, oriented x3, sensory intact, responsive, speech normal Psychiatric: judgement/insight normal, memory normal, mood/affect normal, no suicidal/homicidal ideation Skin: no rash Lymphatic: no adenopathy Procedures Splinting Splinting : Consent: Verbal Location: Right wrist Pre-Made Type: velcro Splint: thumb spica Pre-Proc Neuro Vasc Exam: normal Post-Proc Neuro Vasc Exam: normal Patient Tolerated: Well Complications: None Medical Decision Making PA Attestation Diagnosis and treatment plans were reviewed and discussed with my supervising physician Dr. 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 Patient rates the pain 10 out of 10 and does not even allow me to touch the wrist. Reports that the pain starts in the thumb area and wrist and radiates to the right shoulder. Complains of tingling however denies numbness. Has not taken medication for symptom relief. Denies any fall or injury. Denies chest pain, shortness of breath, headache and dizziness. Does not know if she has a history of carpal tunnel syndrome. Reports that she lifts a lot of heavy objects. Denies . Ddx considered but are not limited to : Wrist sprain, wrist strain, wrist fracture Vital signs: are WNL, pt. is afebrile H&PE are most consistent with: Carpal tunnel syndrome, right wrist sprain ORDERS: Wrist x-ray, shoulder x-ray, Robaxin, Motrin ED INTERVENTIONS: Robaxin, Motrin, Velcro thumb spica DISCHARGE: At this time pt. is stable for d/c to home. Will provide printed patient care instructions, and any necessary prescriptions. Care plan and follow up instructions have been discussed with the patient prior to discharge. Take medication as directed, follow primary care provider, if worsening symptoms return to the emergency room Other X-Ray Diagnostic Results Other X-Ray Diagnostic Results #1: X-Ray ordered: Right wrist # of Views/Limited Vs Complete: 3 View Indication: Pain EP Interpretation: Yes PA Xray: Interpretation reviewed, by supervising MD, and agrees with findings. Interpretation: no dislocation, no soft tissue swelling, no fractures Impression: No acute disease Electronically Signed by: Beny Silveira PA-C Other X-Ray Diagnostic Results #2: X-Ray ordered: Right shoulder # of Views/Limited Vs Complete: 3 View Indication: Pain EP Interpretation: Yes PA Xray: Interpretation reviewed, by supervising MD, and agrees with findings. Interpretation: no dislocation, no soft tissue swelling, no fractures Impression: No acute disease Electronically Signed by: Beny Silveira PA-C Last Vital Signs Date Time Temp Pulse Resp B/P (MAP) Pulse Ox O2 Delivery O2 Flow Rate FiO2 05/01/20 16:44 98.4 88 20 121/77 98 Room Air Disposition: HOME, SELF-CARE Condition: Stable Scripts Ibuprofen* (MOTRIN*) 600 Mg Tablet 600 MG ORAL THREE TIMES A DAY, #30 TAB Prov: Beny Pelayo 05/01/20 Methocarbamol* (ROBAXIN-500*) 500 Mg Tablet 500 MG ORAL TID PRN for For Pain, #15 TAB 0 Refills Prov: Beny Pelayo 05/01/20 Referrals: [facility]/,REFERRING (PCP) Patient Instructions: Carpal Tunnel Syndrome, Wrist Sprain Additional Instructions: Take medication as directed, follow-up with your primary care provider, if worsening symptoms return to the Emergency Room Beny Pelayo May 01, 2020 17:11
[2020-05-01] MEDS ORDERED: IBUPROFEN600 M1 ORAL (17:14)
[2020-05-01] MEDS ORDERED: ROBAXIN-500MG ORAL (17:14)
--- NOTE | 2020-05-01 17:20 | Diagnostic Imaging Report ---
Indication: Wrist pain status post injury Technique: XRAY Wrist Complete R Comparison: None Findings: Bone mineralization within normal limits. No acute fracture or dislocation is identified. Joint spaces are maintained. No radiopaque foreign body. Impression: No acute fracture or dislocation.
--- NOTE | 2020-05-01 17:21 | Diagnostic Imaging Report ---
Indication: Shoulder pain Technique: 3 views of the right shoulder Comparison: None Findings: Bone mineralization within normal limits. There is no acute fracture or dislocation. Imaged portions of the right lung grossly clear. No radiopaque foreign body. Impression: No acute fracture or dislocation.
[2020-05-01 17:30] VITALS: BP 126/72
--- NOTE | 2020-05-02 10:15 | Diagnostic Imaging Report ---
EXAM: X-RAY XRAY Elbow Min 3v R CLINICAL HISTORY: Trauma with elbow pain. COMPARISON: None FINDINGS: Total of 3 views of the right elbow were obtained. Alignment is anatomic. There is no fracture, bony lesions or erosions. Joint spaces are unremarkable. Surrounding soft tissue is normal. IMPRESSION: NO FRACTURE.
== END 2020-05-01 17:30 | disposition home or self-care (01) ==
LOC: EMR 16:39
DX: S63.501A Unspecified sprain of right wrist, initial encounter (principal); G56.01 Carpal tunnel syndrome, right upper limb; X50.0XXA Overexertion from strenuous movement or load, initial encounter; Y92.129 Unspecified place in nursing home as the place of occurrence of the external cause
CPT/HCPCS: 99284

== ENCOUNTER 2020-05-14 09:48 | Emergency (ER) | payer MEDICAID, OTHER ==
[~2020-05-14] VITALS: Ht 162.6 cm; Wt 98.9 kg
[~2020-05-14 09:48] MED LIST changes: +ROBAXIN-500MG ORAL
[2020-05-14 09:54] VITALS: BP 125/78
--- NOTE | 2020-05-14 10:04 | NUR ---
ED Nurse Note: Pt from home walked in due to vaginal itching and white discharge clear and non foul odor. Pt states she was on flagyl for bacterial vaginosis. AAO x4, ambulatory.
--- NOTE | 2020-05-14 10:11 | Emergency Room Report ---
History of Present Illness General Chief Complaint: Vaginal Source: Patient Present Illness HPI Patient is a 39-year-old female presents to the ER complaining of vaginal itching and white clear discharge. Patient states that she was on Flagyl for bacterial vaginosis and usually takes Diflucan when she takes antibiotics but did not take it this time. She denies any abdominal pain, nausea or vomiting. She denies any fever or chills. 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 Patient History Last Menstrual Period: 04/14/20 Now: No Reviewed Nursing Documentation: PMH: Agreed; PSxH: Agreed Nursing Documentation-PMH Past Medical History: No History, Except For Review of Systems All Other Systems: negative except mentioned in HPI Physical Exam Vital Signs Date Time Temp Pulse Resp B/P (MAP) Pulse Ox O2 Delivery O2 Flow Rate FiO2 05/14/20 09:54 99.0 98 17 125/78 98 Room Air Sp02 EP Interpretation: reviewed, normal General Appearance: no apparent distress, alert, GCS 15, non-toxic Head: normocephalic, atraumatic Eyes: bilateral eye normal inspection, bilateral eye PERRL ENT: hearing grossly normal, normal pharynx, no angioedema, normal voice Neck: full range of motion, supple/symm/no masses Respiratory: chest non-tender, lungs clear, normal breath sounds, speaking full sentences Cardiovascular #1: regular rate, rhythm, no edema Gastrointestinal: non tender, soft, overweight Rectal: deferred Genitourinary: other - No labial swelling or erythema white clumpy discharge, exam chaperoned by GENOVEVA Souza Musculoskeletal: normal range of motion, no calf tenderness Neurologic: crepe sole scourer III-XII nml as tested, oriented x3 Psychiatric: no suicidal/homicidal ideation Skin: no rash Lymphatic: no adenopathy Medical Decision Making Diagnostic Impression: Primary Impression: Candidal vaginitis ER Course Patient given 150 mg of oral fluconazole. After discussing risks and benefits of further diagnostics, treatment plans, as well as indications for and risks of admission, the patient is agreeable to being discharged home. I have explained that their evaluation and treatment in the emergency department today is an important step towards them achieving better health but that their evaluation today is not intended to replace further evaluation and treatment by a physician in their local clinic. I have explained that while the current findings suggest no immediate life threatening emergency they will require further evaluation and treatment by a physician of their choice in their area. They understand that it will be necessary for them to review the final reports of their ED visit with their clinic physician. We have reviewed indications for return to the Emergency Department. I have explained that additional time may need to pass and/or additional testing as an outpatient may be necessary before a definitive diagnosis can be made. They tell me they are willing to follow up as instructed within the timeframe I recommend. They appear to understand what we discussed. Additionally they understand that if they are unable to be seen by an outpatient physician they are welcome, and in fact should, return to the Emergency Department for a repeat evaluation. The patient is stable at time of discharge. Last Vital Signs Date Time Temp Pulse Resp B/P (MAP) Pulse Ox O2 Delivery O2 Flow Rate FiO2 05/14/20 09:54 99.0 98 17 125/78 (94) 98 Room Air Disposition: HOME, SELF-CARE Condition: Stable Referrals: [facility] Barbara Varma. [facility] Patient Instructions: Vaginitis, [id number] Additional Instructions: The patient was provided with discharge instructions, notified to follow-up with a primary care doctor and or specialist in the next 24-48 hours, and to return to the ED if they have worsening of their symptoms. Please note that this report is being documented using [employer] technology. This can lead to erroneous entry secondary to incorrect interpretation by the dictating instrument. Angie Richardson M.D. May 14, 2020 10:11
[2020-05-14] MEDS ORDERED: Fluconazole 150mg tab ORAL ONE (10:15)
[2020-05-14 10:18] VITALS: BP 133/70
== END 2020-05-14 10:18 | disposition home or self-care (01) ==
LOC: EMR 10:00
DX: B37.3 Candidiasis of vulva and vagina (principal)
CPT/HCPCS: 99281

== ENCOUNTER 2020-08-02 21:18 | Emergency (ER) | payer MEDICAID ==
[~2020-08-02] VITALS: Ht 160 cm; Wt 96.6 kg
[2020-08-02 21:27] VITALS: BP 98/86
[2020-08-02] MEDS ORDERED: Ampicillin/Sulbactam Sod 3 GM in NS 110 ML IVPB ONE (22:00)
--- NOTE | 2020-08-02 22:04 | Emergency Room Report ---
History of Present Illness General Chief Complaint: Sore Throat Source: Patient (Bubba Lan MD) Present Illness HPI Patient is a 40-year-old female presents for increased sore throat.Onset of symptoms 2 days ago. Reports of increased discomfort to her neck. Associated difficulty swallowing. Denies being a smoker. States she has had recent coronavirus testing however does not have any results of this currently. Increased anterior neck pain. (Bubba Lan MD) Allergies: Coded Allergies: No Known Allergies (Unverified , 04/01/19) COVID-19 Screening Contact w/high risk pt: No Recent Travel to affected area: No Experienced COVID-19 symptoms?: Yes COVID-19 Testing performed PHYTOPATHOLOGIST: No (Bubba Lan MD) Patient History Now: No : 5 Para: 4 Reviewed Nursing Documentation: PMH: Agreed; PSxH: Agreed (Bubba Lan MD) Physical Exam Vital Signs Date Time Temp Pulse Resp B/P (MAP) Pulse Ox O2 Delivery O2 Flow Rate FiO2 08/02/20 21:20 98.4 88 19 125/83 (97) 98 Room Air (Bubba Lan MD) Medical Decision Making Diagnostic Impression: Primary Impression: Osteitis condensans Additional Impressions: Pharyngitis Sialadenitis ER Course Assumed care of the patient from the previous provider at approximately 2200 hrs. Please refer to initial note for full history and physical exam. Briefly, 40-year-old female presenting for evaluation of sore throat of 2 days duration as well as increased swelling in the neck. She reported difficulty swallowing. Recent coronavirus testing negative. At the time of signout CT scan of the neck was pending. Labs show no white count, adequate hemoglobin, chemistry within normal limits, TSH within normal limits, negative troponin, D- dimer within normal limits. CT scan does not show abscess, mass, pneumomedi astinum or other concerning findings. They noted possible condensing osteitis and the patient has had multiple dental caries and extractions. She can follow- up with this with her dentist. There is some swelling of the salivary gland noted as well. No sign of mass or infection or stone. Encouraged her to use hard candies or gum to increase elevation. Will start on Augmentin for pharyngitis. Patient is well-appearing, vitals within normal limits, labs reassuring and she is afebrile. Speaking with a normal voice and tolerating secretions. Stable for outpatient follow-up with PMD. Discussed reasons to return to the ER. She understands and agrees with this treatment plan. Laboratory Tests Test 08/02/20 21:55 08/02/20 23:05 White Blood Count 9.0 K/UL (4.8-10.8) Red Blood Count 4.49 M/UL (4.20-5.40) Hemoglobin 12.8 G/DL (12.0-16.0) Hematocrit 39.6 % (37.0-47.0) Mean Corpuscular Volume 88 FL (80-99) Mean Corpuscular Hemoglobin 28.6 PG (27.0-31.0) Mean Corpuscular Hemoglobin Concent 32.5 G/DL (32.0-36.0) Red Cell Distribution Width 13.8 % (11.6-14.8) Platelet Count 265 K/UL (150-450) Mean Platelet Volume 6.5 FL (6.5-10.1) Neutrophils (%) (Auto) 56.8 % (45.0-75.0) Lymphocytes (%) (Auto) 30.9 % (20.0-45.0) Monocytes (%) (Auto) 10.7 % (1.0-10.0) H Eosinophils (%) (Auto) 0.8 % (0.0-3.0) Basophils (%) (Auto) 0.8 % (0.0-2.0) Erythrocyte Sedimentation Rate 12 MM/HR (0-20) D-Dimer 0.35 mg/L FEU (0.00-0.49) Sodium Level 139 MMOL/L (136-145) Potassium Level 3.9 MMOL/L (3.5-5.1) Chloride Level 105 MMOL/L (98-107) Carbon Dioxide Level 26 MMOL/L (21-32) Anion Gap 8 mmol/L (5-15) Blood Urea Nitrogen 9 mg/dL (7-18) Creatinine 0.9 MG/DL (0.55-1.30) Estimated Glomerular Filtration Rate > 60 mL/min (>60) Glucose Level 88 MG/DL (74-106) Calcium Level 8.3 MG/DL (8.5-10.1) L Total Bilirubin 0.4 MG/DL (0.2-1.0) Aspartate Amino Transferase (AST) 14 U/L (15-37) L Alanine Aminotransferase (ALT) 48 U/L (12-78) Alkaline Phosphatase 77 U/L (46-116) Troponin I 0.000 ng/mL (0.000-0.056) Total Protein 7.1 G/DL (6.4-8.2) Albumin 3.6 G/DL (3.4-5.0) Globulin 3.5 g/dL Albumin/Globulin Ratio 1.0 (1.0-2.7) Thyroid Stimulating Hormone (TSH) 1.002 uiU/mL (0.358-3.740) Urine Color Pale yellow Urine Appearance Clear Urine pH 7 (4.5-8.0) Urine Specific [place] 1.005 (1.005-1.035) Urine Protein Negative (NEGATIVE) Urine Glucose (UA) Negative (NEGATIVE) Urine Ketones Negative (NEGATIVE) Urine Blood Negative (NEGATIVE) Urine Nitrite Negative (NEGATIVE) Urine Bilirubin Negative (NEGATIVE) Urine Urobilinogen Normal MG/DL (0.0-1.0) Urine Leukocyte Esterase Negative (NEGATIVE) Urine RBC 0-2 /HPF (0 - 2) Urine WBC 0 /HPF (0 - 2) Urine Squamous Epithelial Cells Few /LPF (NONE/OCC) Urine Bacteria None /HPF (NONE) Urine HCG, Qualitative Negative (NEGATIVE) (Corey Galo MD) CT/MRI/US Diagnostic Results CT/MRI/US Diagnostic Results : Impression Final Report EXAM: CT Neck With Intravenous Contrast CLINICAL HISTORY: PAIN TECHNIQUE: Axial computed tomography images of the neck with intravenous contrast. CTDI is 29.1 mGy and DLP is 820.1 mGy-cm. One or more of the following dose reduction techniques were used: automated exposure control, adjustment of the mA and/or kV according to patient size, use of iterative reconstruction technique. Coronal and sagittal reformatted images were created and reviewed. COMPARISON: No relevant prior studies available. FINDINGS: Oropharynx: Unremarkable. No significant tonsillar enlargement. No peritonsillar abscess. Hypopharynx: Unremarkable. Larynx: Unremarkable. Normal epiglottis. Trachea: Unremarkable. Retropharyngeal space: Unremarkable. Submandibular/parotid glands: The right submandibular gland is slightly larger than the left, nonspecific. Question degree of sialoadenitis. No obvious suspic ious focal mass. Thyroid: Unremarkable. No enlarged or calcified nodules. Bones/joints: Multiple areas of bony sclerosis seen within the mandible which may reflect a degree of condensing osteitis. Anterior marginal osteophytes seen at C5/C6 and T2/T3. No acute fracture. Soft tissues: Unremarkable. Vasculature: No acute findings. Lymph nodes: Unremarkable. No lymphadenopathy. Lung apices: Unremarkable as visualized. IMPRESSION: 1. The right submandibular gland is slightly larger than the left, nonspecific. Question degree of sialoadenitis. No obvious suspicious focal mass. 2. Multiple areas of bony sclerosis seen within the mandible which may reflect a degree of condensing osteitis. Radiologist: Jerry Tomas M.D. Electronically Signed: 08/02/20 23:28 Study ready at 23:03 and initial results transmitted at 23:28 (Corey Galo MD) Last Vital Signs Date Time Temp Pulse Resp B/P (MAP) Pulse Ox O2 Delivery O2 Flow Rate FiO2 08/02/20 21:27 98.4 95 19 98/86 100 Room Air (Bubba Lan MD) Disposition: HOME, SELF-CARE Condition: Stable Scripts Amoxicillin/Potassium Clav 875-125* (AUGMENTIN 875-125 TABLET*) 1 Each Tablet 1 TAB ORAL TWICE A DAY for 7 Days, #14 TAB Prov: Corey Galo MD 08/02/20 Referrals: [facility],REFERRING (PCP) Bubba Lan MD Aug 02, 2020 22:04 Corey Galo MD Aug 02, 2020 23:31
[2020-08-02 22:19] LABS: BASOPHILS % (AUTO) 0.8 % (0.0-2.0); EOSINOPHILS % (AUTO) 0.8 % (0.0-3.0); HEMATOCRIT 39.6 % (37.0-47.0); HEMOGLOBIN 12.8 G/DL (12.0-16.0); LYMPHOCYTES % (AUTO) 30.9 % (20.0-45.0); MEAN CORPUSCULAR VOLUME 88 FL (80-99); MONOCYTES % (AUTO) 10.7 % (1.0-10.0); NEUTROPHILS % (AUTO) 56.8 % (45.0-75.0); PLATELET COUNT 265 K/UL (150-450); RED BLOOD COUNT 4.49 M/UL (4.20-5.40); RED CELL DISTRIBUTION WIDTH 13.8 % (11.6-14.8)
[2020-08-02 22:28] LABS: ANION GAP 8 mmol/L (5-15); BLOOD UREA NITROGEN 9 mg/dL (7-18); CALCIUM 8.3 MG/DL (8.5-10.1); CARBON DIOXIDE 26 MMOL/L (21-32); CHLORIDE 105 MMOL/L (98-107); CREATININE 0.9 MG/DL (0.55-1.30); POTASSIUM 3.9 MMOL/L (3.5-5.1); SODIUM 139 MMOL/L (136-145)
[2020-08-02] MEDS ORDERED: Lidocaine 2% Visc 15ml soln ORAL ONE (22:30)
[2020-08-02 22:40] LABS: ALANINE AMINOTRANSFERASE 48 U/L (12-78); ALBUMIN 3.6 G/DL (3.4-5.0); ALKALINE PHOSPHATASE 77 U/L (46-116); ASPARTATE AMINO TRANSFERASE 14 U/L (15-37); BILIRUBIN,TOTAL 0.4 MG/DL (0.2-1.0)
[2020-08-02] MEDS ORDERED: Omnipaque-300 100ml vial INJ ONE (22:45)
--- NOTE | 2020-08-02 23:29 | Diagnostic Imaging Report ---
EXAM: CT Neck With Intravenous Contrast CLINICAL HISTORY: PAIN TECHNIQUE: Axial computed tomography images of the neck with intravenous contrast. CTDI is 29.1 mGy and DLP is 820.1 mGy-cm. One or more of the following dose reduction techniques were used: automated exposure control, adjustment of the mA and/or kV according to patient size, use of iterative reconstruction technique. Coronal and sagittal reformatted images were created and reviewed. COMPARISON: No relevant prior studies available. FINDINGS: Oropharynx: Unremarkable. No significant tonsillar enlargement. No peritonsillar abscess. Hypopharynx: Unremarkable. Larynx: Unremarkable. Normal epiglottis. Trachea: Unremarkable. Retropharyngeal space: Unremarkable. Submandibular/parotid glands: The right submandibular gland is slightly larger than the left, nonspecific. Question degree of sialoadenitis. No obvious suspicious focal mass. Thyroid: Unremarkable. No enlarged or calcified nodules. Bones/joints: Multiple areas of bony sclerosis seen within the mandible which may reflect a degree of condensing osteitis. Anterior marginal osteophytes seen at C5/C6 and T2/T3. No acute fracture. Soft tissues: Unremarkable. Vasculature: No acute findings. Lymph nodes: Unremarkable. No lymphadenopathy. Lung apices: Unremarkable as visualized. IMPRESSION: 1. The right submandibular gland is slightly larger than the left, nonspecific. Question degree of sialoadenitis. No obvious suspicious focal mass. 2. Multiple areas of bony sclerosis seen within the mandible which may reflect a degree of condensing osteitis.
[2020-08-02 23:33] LABS: APPEARANCE,URINE CLEAR; BILIRUBIN, URINE NEGATIVE (NEGATIVE); COLOR,URINE PALE YELLOW; GLUCOSE, URINE (UA) NEGATIVE (NEGATIVE); KETONES,URINE NEGATIVE (NEGATIVE); LEUKOCYTE ESTERASE ,URINE NEGATIVE (NEGATIVE); NITRITE,URINE NEGATIVE (NEGATIVE); PH,URINE 7 (4.5-8.0); PROTEIN,URINE NEGATIVE (NEGATIVE); UROBILINOGEN,URINE NORMAL MG/DL (0.0-1.0)
[2020-08-02] MEDS ORDERED: AUGMENTIN 875-1 EAC1 ORAL (23:34)
[2020-08-02 23:50] VITALS: BP 120/76
== END 2020-08-02 23:50 | disposition home or self-care (01) ==
LOC: EMR 21:42
DX: J02.9 Acute pharyngitis, unspecified (principal); K11.20 Sialoadenitis, unspecified; M85.38 Osteitis condensans, other site
CPT/HCPCS: 36415; 70491; 80053; 81001; 81025; 84443; 84484; 85025; 85379; 85651; 96365; J0295; J7030; Q9967; Z7502; 99284

== ENCOUNTER 2020-08-16 07:56 | Emergency (ER) | payer MEDICAID ==
[~2020-08-16] VITALS: Ht 162.6 cm; Wt 97.1 kg
[~2020-08-16 07:56] MED LIST changes: +AUGMENTIN 875-1 EAC1 ORAL
--- NOTE | 2020-08-16 08:10 | NUR ---
ED Nurse Note: Pt ambulated to ED from home d/t rectal discomfort, per pt, she thinks she may have hemorroids. Pt complains of itchiness and pain upon ambulation and mild constipation. Pt is AOx4, calm and cooperative to care. Pt's VSS on RA, afebrile on triage. Placed on bed.
[2020-08-16 08:16] VITALS: BP 143/87
[2020-08-16] MEDS ORDERED: ANUSOL-HC30 GM RC (08:18)
[2020-08-16] MEDS ORDERED: sitz bath (08:18)
[2020-08-16] MEDS ORDERED: LD2JL30 TOPIC (08:18)
[2020-08-16] MEDS ORDERED: DOCUSATE SODIU100 MG ORAL (08:19)
--- NOTE | 2020-08-16 08:27 | Emergency Room Report ---
History of Present Illness General Chief Complaint: General Complaint Source: Patient Present Illness HPI Disclaimer: Please note that this report is being documented using [employer] technology. This can lead to erroneous entry secondary to incorrect interpretation by the dictating instrument. HPI: This is a 40-year-old female presenting for evaluation of rectal pain and bleeding. Symptoms present 1 day. She reports recent constipation and straining. No prior history of hemorrhoids. Reports blood on the tissue paper but no rob bleeding. Denies fever, chills, nausea, vomiting, abdominal pain, dysuria, hematuria otherwise. No exacerbating or relieving factors. 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 EOMI. Resp: Normal work of breathing Abdomen: Soft, nontender, nondistended. Rectal: 1 external nonthrombosed hemorrhoid at the 3 o'clock position. No active bleeding. No ulceration. Skin: Intact. No abrasions, laceration or rash over the exposed skin MSK: Normal tone and bulk. Moving all extremities. No obvious deformity. Neuro: Awake and alert. Mentating appropriately Medical Decision Making Diagnostic Impression: Primary Impression: External hemorrhoid ER Course Is a 40-year-old female presenting for evaluation of rectal pain and bleeding. Exam consistent with nonthrombosed external hemorrhoid. Will prescribe Anusol, lidocaine, stool softener and sitz bath. The patient will follow up with PMD for referral to general surgery as needed regarding external hemorrhoids. Discussed reasons to return to the emergency department. She understands and agrees with this treatment plan. Last Vital Signs Date Time Temp Pulse Resp B/P (MAP) Pulse Ox O2 Delivery O2 Flow Rate FiO2 11/11/20 08:16 98.2 22 143/87 95 Room Air 08/16/20 08:16 98 Disposition: HOME, SELF-CARE Condition: Stable Scripts Docusate Sodium* (DOCUSATE SODIUM*) 100 Mg Capsule 100 MG ORAL TWICE A DAY for 10 Days, #20 CAP Prov: Corey Galo MD 08/16/20 [sitz bath] No Conflict Check 1 KIT Prov: Corey Galo MD 08/16/20 Lidocaine HCL 2% Jelly* (Lidocaine Jelly 2%*) 5 Ml Jel.pf.erna 5 ML TOPIC DAILY for 5 Days, #50 ML Prov: Corey Galo MD 08/16/20 Hydrocortisone Hc 2.5% Cream (ANUSOL-HC 2.5% CREAM) Y Cr 5 GM RC TID, #30 GM Prov: Corey Galo MD 08/16/20 Referrals: [facility] Barbara Barnett Comp. [facility] Patient Instructions: Hemorrhoids Additional Instructions: Please follow-up with your primary care doctor for referral to general surgery regarding your hemorrhoids. Use the creams and sitz bath as instructed. Please follow-up with your primary care doctor in the next 1 to 3 days to discuss this emergency department visit and for reevaluation. If you have any new or worsening symptoms please return to the emergency department for reevaluation. Please note that this report is being documented using [employer] technology. This can lead to erroneous entry secondary to incorrect interpretation by the dictating instrument. Corey Galo MD Aug 16, 2020 08:27
[2020-08-16 08:30] VITALS: BP 138/84
--- NOTE | 2020-08-16 08:30 | NUR ---
ER DISCHARGE NOTE: Patient is cleared to be discharged per ERMD, pt is aox4, on room air, with stable vital signs. pt was given dc and prescription instructions, pt was able to verbalize understanding, pt id band removed. pt is able to ambulate with steady gait. pt took all belongings.
== END 2020-08-16 08:30 | disposition home or self-care (01) ==
LOC: EMR 08:10
DX: K64.4 Residual hemorrhoidal skin tags (principal)
CPT/HCPCS: 99282

== ENCOUNTER 2020-09-11 12:32 | Emergency (ER) | payer MEDICAID ==
[~2020-09-11] VITALS: Ht 160 cm; Wt 97.1 kg
[~2020-09-11 12:32] MED LIST changes: +ANUSOL-HC30 GM RC; +DOCUSATE SODIU100 MG ORAL; +LD2JL30 TOPIC; +sitz bath
[2020-09-11] MEDS ORDERED: Ketorolac 30mg Inj IM ONE (13:00)
[2020-09-11] MEDS ORDERED: Methocarbamol 750mg tab ORAL ONE (13:00)
--- NOTE | 2020-09-11 13:12 | NUR ---
ED Nurse Note:pt. c/o lower back pain, urine sent to labs, pt. received pain meds
[2020-09-11 13:13] VITALS: BP 108/65
[2020-09-11 13:46] LABS: APPEARANCE,URINE CLEAR; BILIRUBIN, URINE NEGATIVE (NEGATIVE); GLUCOSE, URINE (UA) NEGATIVE (NEGATIVE); KETONES,URINE 1+ (NEGATIVE); LEUKOCYTE ESTERASE ,URINE NEGATIVE (NEGATIVE); NITRITE,URINE NEGATIVE (NEGATIVE); PH,URINE 6.5 (4.5-8.0); PROTEIN,URINE NEGATIVE (NEGATIVE); UROBILINOGEN,URINE NORMAL MG/DL (0.0-1.0)
[2020-09-11 13:51] LABS: COLOR,URINE YELLOW
--- NOTE | 2020-09-11 13:53 | Emergency Room Report ---
History of Present Illness General Chief Complaint: Back Pain-No Injury Present Illness HPI 40-year-old female with no significant past medical history here complaining of lumbar pain after bending forward yesterday and feeling like a muscle pull in her back. Denies any fall or injury. Reports that the pain radiates to the front of abdomen. Denies any urinary frequency urgency urinary or bowel incontinence. Denies paresthesia, tingling or numbness. Rates the pain 5 out of 10 at this time. Has not taken medication for symptom relief. Denies chest pain, shortness of breath, headache or dizziness. Denies . 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 Patient History Past Medical History: see triage record Past Surgical History: none Pertinent Family History: none Now: No Immunizations: UTD Reviewed Nursing Documentation: PMH: Agreed; PSxH: Agreed Review of Systems All Other Systems: negative except mentioned in HPI Physical Exam Vital Signs Date Time Temp Pulse Resp B/P (MAP) Pulse Ox O2 Delivery O2 Flow Rate FiO2 09/11/20 12:35 98.2 95 15 108/65 (79) 99 Room Air Sp02 EP Interpretation: reviewed, normal General Appearance: no apparent distress, alert, GCS 15, non-toxic Head: normocephalic, atraumatic Eyes: bilateral eye normal inspection, bilateral eye PERRL ENT: hearing grossly normal, no angioedema, normal voice Neck: supple Respiratory: no respiratory distress, no retraction, no accessory muscle use Cardiovascular #1: regular rate, rhythm, no edema Gastrointestinal: normal bowel sounds, non tender, soft, non-distended, no guarding, no rebound Rectal: deferred Genitourinary: no CVA tenderness Musculoskeletal: back normal, digits/nails normal, no calf tenderness, pelvis stable, moves extm spontaneously, gait/station normal Neurologic: alert, motor strength/tone normal, oriented x3, sensory intact, responsive, speech normal Psychiatric: judgement/insight normal, memory normal, mood/affect normal, no suicidal/homicidal ideation Skin: no rash Lymphatic: no adenopathy Medical Decision Making PA Attestation All diagnoses and treatment plans were reviewed and discussed with my supervising physician Dr. Galo Diagnostic Impression: Primary Impression: Lumbar strain ER Course 40-year-old female with no significant past medical history here complaining of lumbar pain after bending forward yesterday and feeling like a muscle pull in her back. Denies any fall or injury. Reports that the pain radiates to the front of abdomen. Denies any urinary frequency urgency urinary or bowel incontinence. Denies paresthesia, tingling or numbness. Rates the pain 5 out of 10 at this time. Has not taken medication for symptom relief. Denies chest pain, shortness of breath, headache or dizziness. Denies . Ddx considered but are not limited to: Lumbar spine sprain, strain, fracture, contusion, neuropathy Vital signs: are WNL, pt. is afebrile H&PE are most consistent with: Lumbar strain ORDERS: At this time no x-ray necessary patient not following to herself, UA, urine test, Robaxin, Motrin, lidocaine patch ER intervention: Toradol IM, lidocaine patch, Robaxin p.o. patient reported improvement after administration of this medication DISCHARGE: At this time pt. is stable for d/c to home. Will provide printed patient care instructions, and any necessary prescriptions. Care plan and follow up instructions have been discussed with the patient prior to discharge. Patient take medication as directed, follow primary care provider, if worsening symptoms return to the emergency room Last Vital Signs Date Time Temp Pulse Resp B/P (MAP) Pulse Ox O2 Delivery O2 Flow Rate FiO2 09/11/20 13:13 98.2 15 108/65 99 Room Air 09/11/20 12:35 95 Disposition: HOME, SELF-CARE Condition: Stable Scripts Lidocaine Patch* (Lidoderm Patch*) 1 Each Adh..patch 1 PATCH TOPIC DAILY, #30 PATCH Patch(es) may remain in place for up to 12 hours in any 24-hour period. Prov: Beny Pelayo 09/11/20 Ibuprofen* (MOTRIN*) 600 Mg Tablet 600 MG ORAL Q6H PRN for For Pain, #30 TAB 0 Refills Prov: Beny Pelayo 09/11/20 Methocarbamol* (ROBAXIN-500*) 500 Mg Tablet 500 MG ORAL TID PRN for For Pain, #15 TAB 0 Refills Prov: Beny Pelayo 09/11/20 Referrals: [facility],REFERRING (PCP) Patient Instructions: Lumbosacral Strain Additional Instructions: Take medication as directed, follow with primary care provider, if worsening symptoms return to the emergency room Beny Pelayo Sep 11, 2020 13:53
[2020-09-11] MEDS ORDERED: LIDODERM700 M1 TOPIC (13:54)
[2020-09-11] MEDS ORDERED: IBUPROFEN600 M1 ORAL (13:54)
[2020-09-11] MEDS ORDERED: ROBAXIN-500MG ORAL (13:54)
[2020-09-11 14:10] VITALS: BP 108/65
== END 2020-09-11 14:10 | disposition home or self-care (01) ==
LOC: EMR 13:15
DX: S39.012A Strain of muscle, fascia and tendon of lower back, initial encounter (principal); X50.1XXA Overexertion from prolonged static or awkward postures, initial encounter; Y92.9 Unspecified place or not applicable
CPT/HCPCS: 81003; 81025; 96372; J1885; Z7502; 99283

== ENCOUNTER 2020-11-03 13:01 | Emergency (ER) | payer OTHER, MEDICAID ==
[~2020-11-03] VITALS: Ht 160 cm; Wt 100.7 kg
[2020-11-03 13:24] VITALS: BP 115/75
--- NOTE | 2020-11-03 13:26 | NUR ---
ED Nurse Note:pt. came from home with right wrist pain after she pulled something yesterday
[2020-11-03] MEDS ORDERED: Methocarbamol 750mg tab ORAL ONE (13:30)
[2020-11-03] MEDS ORDERED: Ketorolac 30mg Inj IM ONE (13:30)
--- NOTE | 2020-11-03 13:41 | Emergency Room Report ---
History of Present Illness General Chief Complaint: Upper Extremity Injury Source: Patient Present Illness HPI 40-year-old female with history of recurrent injuries to the right wrist due to type of work she has here complaining of accidentally slipping her right wrist backward as was trying to take off bedsheets. Obvious swelling noted dorsal aspect of right wrist. Patient complains of radiating radiation of pain to the hand and elbow. Phalen sign is positive. Denies tingling or numbness. Has taken Advil with minimal relief. Denies all other injuries. Denies chest pain, shortness of breath, headache and dizziness. Denies . Allergies: Coded Allergies: No Known Allergies (Unverified , 04/01/19) COVID-19 Screening Contact w/high risk pt: No Recent Travel to affected area: No Experienced COVID-19 symptoms?: No COVID-19 Testing performed WEIGHER PACKING: No Patient History Past Medical History: see triage record Past Surgical History: none Pertinent Family History: none Now: No Immunizations: UTD Reviewed Nursing Documentation: PMH: Agreed; PSxH: Agreed Nursing Documentation-PMH Past Medical History: No History, Except For Review of Systems All Other Systems: negative except mentioned in HPI Physical Exam Vital Signs Date Time Temp Pulse Resp B/P (MAP) Pulse Ox O2 Delivery O2 Flow Rate FiO2 11/03/20 13:12 98.2 84 17 115/75 (88) 99 Sp02 EP Interpretation: reviewed, normal General Appearance: no apparent distress, alert, GCS 15, non-toxic Head: normocephalic, atraumatic Eyes: bilateral eye normal inspection, bilateral eye PERRL ENT: hearing grossly normal, no angioedema, normal voice Respiratory: chest non-tender, lungs clear, normal breath sounds, speaking full sentences Cardiovascular #1: regular rate, rhythm, no edema Cardiovascular #2: 2+ radial (R), 2+ radial (L) Musculoskeletal: back normal, non-tender, swelling - Right wrist, other - Posi tive Phalen sign Neurologic: alert, motor strength/tone normal, oriented x3, sensory intact, responsive, speech normal Psychiatric: judgement/insight normal, memory normal, mood/affect normal, no suicidal/homicidal ideation Reflexes: 3+ bicep (R), 3+ bicep (L), 3+ tricep (R), 3+ tricep (L), 3+ knee (R), 3+ knee (L) Skin: no rash Lymphatic: no adenopathy Procedures Splinting Splinting : Consent: Verbal Location: right wrist Pre-Made Type: velcro Splint: wrist Pre-Proc Neuro Vasc Exam: normal Post-Proc Neuro Vasc Exam: normal Patient Tolerated: Well Complications: None Medical Decision Making PA Attestation All diagnoses and treatment plans were reviewed and discussed with my supervising physician Dr. Galo Diagnostic Impression: Primary Impression: Right wrist sprain ER Course 40-year-old female with history of recurrent injuries to the right wrist due to type of work she has here complaining of accidentally slipping her right wrist backward as was trying to take off bedsheets. Obvious swelling noted dorsal aspect of right wrist. Patient complains of radiating radiation of pain to the hand and elbow. Phalen sign is positive. Denies tingling or numbness. Has taken Advil with minimal relief. Denies all other injuries. Denies chest pain, shortness of breath, headache and dizziness. Denies . Ddx considered but are not limited to : Wrist sprain, wrist strain, wrist fracture Vital signs: are WNL, pt. is afebrile H&PE are most consistent with: right wrist sprain. possible carpal tunnel ORDERS: Wrist x-ray, ibuprofen, Robaxin, lidocaine cream ED INTERVENTIONS: Toradol IM, Robaxin DISCHARGE: At this time pt. is stable for d/c to home. Will provide printed patient care instructions, and any necessary prescriptions. Care plan and follow up instructions have been discussed with the patient prior to discharge. Take medication as directed, follow primary care provider, follow-up with antenna specialist physical therapy, MRI may be needed due to chronicity of your pain recurrences of injuries. If worsening symptom return to the emergency room. At this time patient has a lot of pain due to a sprain reports that she repeatedly hurts and is worried that she had hurt her tendons and nerves I advised her to follow-up with antenna specialist also have MRI of the wrist done. Other X-Ray Diagnostic Results Other X-Ray Diagnostic Results : X-Ray ordered: Right wrist # of Views/Limited Vs Complete: 3 View Indication: Pain EP Interpretation: Yes PA Xray: Interpretation reviewed, by supervising MD, and agrees with findings. Interpretation: no dislocation, no fractures Impression: No acute disease Electronically Signed by: Beny Silveira PA-C Last Vital Signs Date Time Temp Pulse Resp B/P (MAP) Pulse Ox O2 Delivery O2 Flow Rate FiO2 11/03/20 13:24 98.2 77 17 115/75 99 Disposition: HOME, SELF-CARE Condition: Stable Scripts Lidocaine Hcl (LIDOCAINE HCL) 28.35 Gm Cream..g. 2 GM TP TID, #28 GM Prov: Beny Pelayo 11/03/20 Ibuprofen (Ibu) 800 Mg Tablet 800 MG PO TID, #30 TAB Prov: Beny Pelayo 11/03/20 Methocarbamol* (ROBAXIN-500*) 500 Mg Tablet 500 MG ORAL TID PRN for For Pain, #15 TAB 0 Refills Prov: Beny Pelayo 11/03/20 Referrals: [facility] (PCP) Patient Instructions: Wrist Sprain With [facility] Additional Instructions: Take medication as directed, follow-up with your primary care provider antenna specialist as you have been having recurrent injuries to the wrist and having lingering pain. If worsening symptoms return to the emergency room. Beny Pelayo Nov 03, 2020 13:41
[2020-11-03] MEDS ORDERED: LIDOCAINE HC28.35 GM TP (13:42)
[2020-11-03] MEDS ORDERED: IBU800 MG PO (13:42)
[2020-11-03] MEDS ORDERED: ROBAXIN-500MG ORAL (13:42)
[2020-11-03 13:48] VITALS: BP 115/75
--- NOTE | 2020-11-03 14:47 | Diagnostic Imaging Report ---
Clinical Indication:Trauma, pain Technique: 3 views of the right wrist Comparison: None Findings: No acute fractures. No dislocations. The joint spaces are preserved Impression: Negative
== END 2020-11-03 13:49 | disposition home or self-care (01) ==
LOC: EMR 13:33
DX: S63.501A Unspecified sprain of right wrist, initial encounter (principal); X50.1XXA Overexertion from prolonged static or awkward postures, initial encounter; Y93.89 Activity, other specified; Y92.013 Bedroom of single-family (private) house as the place of occurrence of the external cause
CPT/HCPCS: 73110; 96372; 99283; J1885; 29125

== ENCOUNTER 2020-12-08 20:10 | Emergency (ER) | payer OTHER, MEDICAID ==
[~2020-12-08] VITALS: Ht 160 cm; Wt 100.2 kg
[~2020-12-08 20:10] MED LIST changes: +IBU800 MG PO; +LIDOCAINE HC28.35 GM TP
[2020-12-08 20:27] VITALS: BP 129/77
--- NOTE | 2020-12-08 20:29 | NUR ---
Pte came to ER ambulatory c/o left shoulder pain after the patient was doing some workout. Will continue to monitor.
[2020-12-08] MEDS ORDERED: oxyCODONE HCL/Acetaminophen 5/325mg ORAL ONE (20:45)
[2020-12-08 20:52] VITALS: BP 132/88
--- NOTE | 2020-12-08 20:59 | Emergency Room Report ---
History of Present Illness General Chief Complaint: Pain Source: Patient Present Illness HPI Yesterday the patient fell while she was running. She had her left shoulder and also twisted and pulled her left knee. She took some pain medication last night but today the pain is more severe. It actually is her thigh in the back part that has pain when she tries to walk. The knee is still sore and somewhat swol mariajose. Her shoulder is also sore. She felt that pop last night and the pain is somewhat better at this time. She denies any numbness of her hand or her leg. She did not lose consciousness. When she tries to move her leg the pain is 10/10. At rest the pain is 7/10 in the shoulder and also the knee in the back of the leg. Patient is on her menstruation at this time. Patient denies exposure to Covid positive contacts. No fevers, chills, sore throat, chest pain, palpitations, nausea, vomiting, diarrhea, dysuria, abdominal pain, shortness of breath, rashes, depression, anxiety, visual changes, dizziness, headache. 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 Last Menstrual Period: she is on her period Now: No Reviewed Nursing Documentation: PMH: Agreed; PSxH: Agreed Nursing Documentation-PMH Past Medical History: No Stated History Review of Systems All Other Systems: negative except mentioned in HPI Physical Exam Vital Signs Date Time Temp Pulse Resp B/P (MAP) Pulse Ox O2 Delivery O2 Flow Rate FiO2 12/08/20 20:13 98.2 78 18 132/78 (96) 98 Room Air Sp02 EP Interpretation: reviewed, normal General Appearance: well appearing, no apparent distress, GCS 15 Head: normocephalic Eyes: bilateral eye normal inspection, bilateral eye PERRL, bilateral eye EOMI ENT: moist mucus membranes Neck: supple Respiratory: lungs clear, normal breath sounds Cardiovascular #1: regular rate, rhythm Cardiovascular #2: 2+ radial (R) Gastrointestinal: normal inspection, normal bowel sounds, non tender, no mass, non-distended, overweight Genitourinary: no CVA tenderness Musculoskeletal: back normal, gait/station normal - Limp, tender - Hamstring right leg and left shoulder. Passive range of motion with some tenderness without crepitance and mainly with elevation of the elbow to the shoulder level., swelling - Right knee. Ligaments with laxity no drawer sign. Laxity is similar to left knee also. Suggestive of minimal effusion. Neurologic: alert, oriented x3, grossly normal Psychiatric: mood/affect normal Skin: no rash, warm/dry Medical Decision Making Diagnostic Impression: Primary Impression: Hamstring muscle strain Qualified Codes: S76.311A - Strain of muscle, fascia and tendon of the posterior muscle group at thigh level, right thigh, initial encounter Additional Impressions: Knee sprain Qualified Codes: S83.91XA - Sprain of unspecified site of right knee, initial encounter Shoulder sprain Qualified Codes: S43.402A - Unspecified sprain of left shoulder joint, initial encounter ER Course Patient status post fall yesterday with left shoulder and right knee and hamstring tenderness. Differential includes contusion, fracture, sprain, strain amongst others. Based on [place] knee rules x-ray not indicated however due to the pain that she is experiencing x-ray is ordered. In addition left shoulder film ordered. Patient elected to have oral medication and will be given Motrin and Percocet. Xrays as below - both normal. Patient improved. Vamsi applied to R knee by me. Tension excellent with improvement. Distal neurovascular normal as checked by me. Sling applied to L arm. Position excellent. Distal neurovascular exam normal. Discussed findings with patient. Discussed treatment plan. Patient stable for outpatient observation and treatment. Other X-Ray Diagnostic Results Other X-Ray Diagnostic Results #1: X-Ray ordered: R knee # of Views/Limited Vs Complete: 3 View Indication: Pain EP Interpretation: Yes Interpretation: no dislocation, no soft tissue swelling, no fractures Impression: No acute disease Electronically Signed by: Electronically signed by Jerry Yin MD Other X-Ray Diagnostic Results #2: X-Ray ordered: L shoulder # of Views/Limited Vs Complete: 3 View Indication: Pain EP Interpretation: Yes Interpretation: no dislocation, no soft tissue swelling, no fractures Impression: No acute disease Electronically Signed by: Electronically signed by Jerry Yin MD Last Vital Signs Date Time Temp Pulse Resp B/P (MAP) Pulse Ox O2 Delivery O2 Flow Rate FiO2 12/08/20 20:52 98.3 75 17 132/88 98 Room Air Status: improved Disposition: HOME, SELF-CARE Condition: Improved Scripts Ibuprofen* (MOTRIN*) 600 Mg Tablet 600 MG ORAL Q6H PRN for FOR PAIN, #20 TAB 0 Refills Prov: Jerry Yin MD 12/08/20 Hydrocodone Bit/Acetaminophen (HYDROCODON-ACETAMINOPHEN 5-300) 1 Each Tablet 1 EACH PO Q6HR, #10 TAB Prov: Jerry Yin MD 12/08/20 Referrals: NON PHYSICIAN (PCP) Jerry Yin MD Dec 08, 2020 20:59
--- NOTE | 2020-12-08 21:35 | Diagnostic Imaging Report ---
EXAM: XR Left Shoulder Complete, 2 or More Views CLINICAL HISTORY: TRAUMA TECHNIQUE: Two or more views of the left shoulder. COMPARISON: No relevant prior studies available. FINDINGS: Bones/joints: Unremarkable. No acute fracture. No dislocation. Soft tissues: Unremarkable. IMPRESSION: Normal left shoulder x-rays.
--- NOTE | 2020-12-08 21:35 | Diagnostic Imaging Report ---
EXAM: XR Right Knee, 3 Views CLINICAL HISTORY: TRAUMA TECHNIQUE: Three views of the right knee. COMPARISON: No relevant prior studies available. FINDINGS: Bones/joints: Unremarkable. No acute fracture. No dislocation. Soft tissues: Unremarkable. IMPRESSION: Normal right knee x-rays.
[2020-12-08] MEDS ORDERED: HYDROCODON-ACE1 EA18 PO (21:44)
[2020-12-08] MEDS ORDERED: IBUPROFEN600 M1 ORAL (21:44)
--- NOTE | 2020-12-08 21:59 | NUR ---
Patient was discharge home as EDP ordered. All vital signs were taken within normal range. Patient . All prescriptions and instructions were given to the patient . Patient verbalized understanding. patient left the hospital in stable condition .
== END 2020-12-08 22:00 | disposition home or self-care (01) ==
LOC: EMR 20:32
DX: S76.311A Strain of muscle, fascia and tendon of the posterior muscle group at thigh level, right thigh, initial encounter (principal); S83.91XA Sprain of unspecified site of right knee, initial encounter; S43.402A Unspecified sprain of left shoulder joint, initial encounter; W01.0XXA Fall on same level from slipping, tripping and stumbling without subsequent striking against object, initial encounter; Y93.02 Activity, running; Y92.9 Unspecified place or not applicable
CPT/HCPCS: 99284